=== PATIENT | female | born 2005 | race Caucasian/White ===

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

== ENCOUNTER 2024-01-23 15:16 | Outpatient (CLI) | payer OTHER ==
[2024-01-23 16:07] VITALS: BP 120/60; PULSE 83; RESP 16; TEMP 97.3
--- NOTE | 2024-01-24 18:29 | P.MSEPDOC ---
Presenting Problems - Arrival Data Date of Arrival on Unit: 01/23/24 Time of Arrival on Unit: 15:15 Mode of Transport: Ambulatory - Complaint OB-Reason for Admission/Chief Complaint: Pain Comment: generalized abdominal pain. diarrhea Medical History - Information : 1 Para: 0 Term: 0 : 0 Abortions: Spontaneous or Elective: 0 Number of Living Children: 1 - Gestational Age Gestational Age by BAL (wks/days): 21 Weeks and 3 Days Review of Systems - Review of Systems Constitutional: No problems Breast: No problems ENT: No problems Cardiovascular: No problems Respiratory: No problems Gastrointestinal: Diarrhea Genitourinary: No problems Musculoskeletal: No problems Neurological: No problems Skin: No problems Vital Signs - Temperature Temperature: 97.3 F Temperature Source: Temporal Artery Scan - Pulse Right Sitting Brachial Pulse Rate: 83 Pulse Assessment Method: Automatic Cuff - Respirations Respiratory Rate: 16 Oxygen Delivery Method: Room Air O2 Sat by Pulse Oximetry: 100 - Blood Pressure Right Arm Sitting Blood Pressure: 120/60 Blood Pressure Mean: 80 Blood Pressure Source: Automatic Cuff Physician Notification - Physician Notified Physician Notified Date: 01/23/24 Physician Notified Time: 15:40 Physician: Edyta Cherry Order Received: Yes - Notification Comment Comment: DC Maternal Triage Index - Maternal Triage Index Presenting for scheduled procedure w/no complaint: No - Stat/Priority 1 Stat Priority 1: No - Urgent/Priority 2 Urgent Priority 2: No - Prompt/Priority 3 Prompt Priority 3: No - Non-Urgent/Priority 4 Non-Urgent Priority 4: Yes Criteria Met for Priority 4: cramping, diarrhea, foul smellling urine Disposition - Disposition OB Disposition: Discharge to home Discharge Date: 01/23/24 Discharge Time: 15:53 I agree with the RN Medical Screening Exam: Yes Physician's MSE Comment: I have neither seen nor examined the patient Case reviewed; plan agreed upon as documented in EMR&OBIX.: Yes Diagnosis: RELATED CONDITIONS, UNSPECIFIED, SECOND TRIMESTER
== END 2024-01-23 15:53 | disposition home or self-care (01) ==
LOC: FBPOP 15:16
PROVIDERS: ATTEND Obstetrics & Gynecology
CPT/HCPCS: 99213

== ENCOUNTER 2024-03-24 18:59 | Outpatient (CLI) | payer OTHER ==
--- NOTE | 2024-03-24 20:23 | US ---
EXAMINATION TYPE: US OB limited DATE OF EXAM: 03/24/2024 COMPARISON: US 10/12/23 CLINICAL INDICATION: Female, 18 years old with history of LINDA; LINDA, patient states decreased mo vement TECHNIQUE:: Transabdominal (TA) FINDINGS: GESTATIONAL AGE / DATING No growth performed on today?s study per ordering physician SURVEY LINDA: 7.3 cm Normal Ultrasound evidence of premature rupture of membranes? No PRESENTATION: Vertex LIE: Longitudinal HEART RATE: 126 bpm RHYTHM: Normal IMPRESSION: LINDA: 7.3 cm Normal [facility] Sole Franco, , 03/24/2024 8:21 PM
[2024-03-24 20:57] VITALS: BP 122/59; PULSE 88; RESP 16; TEMP 97.3
--- NOTE | 2024-04-04 23:17 | P.MSEPDOC ---
Presenting Problems - Arrival Data Date of Arrival on Unit: 03/24/24 Time of Arrival on Unit: 18:59 Mode of Transport: Ambulatory - Complaint OB-Reason for Admission/Chief Complaint: Rule Out SROM, Decreased Movement Comment: Possible SROM at home 2 days ago, not leaking since Medical History - Information : 1 Para: 0 Term: 0 : 0 Abortions: Spontaneous or Elective: 0 Number of Living Children: 0 - Gestational Age Gestational Age by BAL (wks/days): 30 Weeks and 1 Days Review of Systems - Review of Systems Constitutional: No problems Breast: No problems ENT: No problems Cardiovascular: No problems Respiratory: No problems Gastrointestinal: No problems Genitourinary: No problems Musculoskeletal: No problems Neurological: No problems Skin: No problems Vital Signs - Temperature Temperature: 97.3 F Temperature Source: Temporal Artery Scan - Pulse Pulse Oximetery Pulse Rate: 88 Pulse Assessment Method: Pulse Oximetry - Respirations Respiratory Rate: 16 Oxygen Delivery Method: Room Air O2 Sat by Pulse Oximetry: 98 - Blood Pressure Right Arm Blood Pressure: 122/59 Blood Pressure Mean: 80 Blood Pressure Source: Automatic Cuff Medical Screen Scoring - Cervical Exam Membranes: Intact - Assessment - Baby A Baseline FHR: 135 Heart Rate - NICHD Category: Category I (Normal) NST: Reactive Physician Notification - Physician Notified Physician Notified Date: 03/24/24 Physician Notified Time: 19:45 Physician: Edyta Cherry - Notification Comment Comment: Dr. Cherry called, pt of hers 30 weeks 1 days presents with decreased FM for last fewdays and woke up drenched 2 days ago and is unsure if urine or amniotic fluid. Not leaking since. NST reacive and cat 1 tones, amnisure negative, vitals good, not cx. Order for LINDA, pt can be d/c home if LINDA normal. LINDA wnl, d/c home Maternal Triage Index - Maternal Triage Index Presenting for scheduled procedure w/no complaint: No - Stat/Priority 1 Stat Priority 1: No - Urgent/Priority 2 Urgent Priority 2: Yes Provider Notified: Edyta Cherry Provider Notified Time: 19:45 Criteria Met for Priority 2: PT c/o decreased movement over past few days and possible ROM at home 2 days ago Disposition - Disposition OB Disposition: Discharge to home Discharge Date: 03/24/24 Discharge Time: 20:37 I agree with the RN Medical Screening Exam: Yes Physician's MSE Comment: I have neither seen nor examined this patient Case reviewed; plan agreed upon as documented in EMR&OBIX.: Yes Diagnosis: OTHER SPECIFIED COMPLICATIONS OF LABOR AND DELIVERY
== END 2024-03-24 20:37 | disposition home or self-care (01) ==
LOC: FBPOP 18:59
PROVIDERS: ATTEND Obstetrics & Gynecology
DX: O75.89 Other specified complications of labor and delivery (principal); Z91.041 Radiographic dye allergy status
CPT/HCPCS: 59025; 76815; G0463; 99213

== ENCOUNTER 2024-05-13 12:56 | Outpatient (CLI) | payer OTHER ==
[2024-05-13 13:18] VITALS: BP 120/58; PULSE 110; RESP 14; TEMP 98.2
--- NOTE | 2024-06-06 23:52 | P.MSEPDOC ---
Presenting Problems - Arrival Data Date of Arrival on Unit: 05/13/24 Time of Arrival on Unit: 12:56 Mode of Transport: Ambulatory - Complaint OB-Reason for Admission/Chief Complaint: Possible Onset of Labor Medical History - Information : 1 Para: 0 Term: 0 : 0 Abortions: Spontaneous or Elective: 0 Number of Living Children: 0 - Gestational Age Gestational Age by BAL (wks/days): 37 Weeks and 2 Days - History Complications: Other Comment: Daily vaper Review of Systems - Review of Systems Constitutional: No problems Breast: No problems ENT: No problems Cardiovascular: No problems Respiratory: No problems Gastrointestinal: No problems Genitourinary: No problems Musculoskeletal: No problems Neurological: No problems Skin: No problems Vital Signs - Temperature Temperature: 98.2 F Temperature Source: Temporal Artery Scan - Pulse Right Pulse Oximetery Pulse Rate: 110 Pulse Assessment Method: Pulse Oximetry - Respirations Respiratory Rate: 14 Oxygen Delivery Method: Room Air O2 Sat by Pulse Oximetry: 98 - Blood Pressure Right Arm Sitting Blood Pressure: 120/58 Blood Pressure Mean: 78 Blood Pressure Source: Automatic Cuff Medical Screen Scoring - Cervical Exam Membranes: Intact - Uterine Contractions Intensity: Mild Resting: Soft to palpation - Assessment - Baby A Baseline FHR: 120 Heart Rate - NICHD Category: Category I (Normal) NST: Reactive Physician Notification - Physician Notified Physician Notified Date: 05/13/24 Physician Notified Time: 14:04 Physician: Edyta Cherry Order Received: Yes - Notification Comment Comment: Dr. Cherry returned phone call, notified of pts arrival to triage with c/o UC's q4min since this morning. RN reported on maternal and status. Orders for pt to D/C home. RN to discuss POC with pt. Maternal Triage Index - Maternal Triage Index Presenting for scheduled procedure w/no complaint: No - Stat/Priority 1 Stat Priority 1: No - Urgent/Priority 2 Urgent Priority 2: No - Prompt/Priority 3 Prompt Priority 3: No - Non-Urgent/Priority 4 Non-Urgent Priority 4: Yes Criteria Met for Priority 4: Pt is a with BAL 06/01/24 here at 37.2 weeks of gestation with c/o UC's q4min apart since this morning. Pt denies other symptoms, and complications with the . Disposition - Disposition OB Disposition: Discharge to home Discharge Date: 05/13/24 Discharge Time: 14:24 I agree with the RN Medical Screening Exam: Yes Physician's MSE Comment: I have neither seen nor examined the patient. Case reviewed; plan agreed upon as documented in EMR&OBIX.: Yes Diagnosis: RELATED CONDITIONS, UNSPECIFIED, THIRD TRIMESTER
== END 2024-05-13 14:24 | disposition home or self-care (01) ==
LOC: FBPOP 12:56
PROVIDERS: ATTEND Obstetrics & Gynecology
DX: O26.93 Pregnancy related conditions, unspecified, third trimester (principal); Z3A.37 37 weeks gestation of pregnancy; Z91.041 Radiographic dye allergy status
CPT/HCPCS: 59025; G0463; 99213

== ENCOUNTER 2024-05-24 04:23 | Outpatient (CLI) | payer OTHER ==
[2024-05-24 06:12] VITALS: BP 122/58; PULSE 101; RESP 16; TEMP 97.4
== END 2024-05-24 05:52 ==
LOC: FBPOP 04:23
PROVIDERS: ATTEND Obstetrics & Gynecology
DX: Z53.9 Procedure and treatment not carried out, unspecified reason (principal)
CPT/HCPCS: 59025; G0463; 99213

== ENCOUNTER 2024-05-28 05:41 | Inpatient (IN) | payer OTHER ==
[2024-05-28] MEDS ORDERED: miSOPROStoL 200 MCG TAB RECTAL PRN (05:58)
[2024-05-28] MEDS ORDERED: CARBOPROST TROMETHAMINE 250 MCG/ML 1 ML AMP IM PRN (05:58)
[2024-05-28] MEDS ORDERED: TRANEXAMIC 1,000 MG/100ML-NACL 1,000 MG in EMPTY BAG 1 BAG IV PRN (05:58)
[2024-05-28] MEDS ORDERED: TERBUTALINE 1 MG/ML VIAL SQ PRN (05:58)
[2024-05-28] MEDS ORDERED: miSOPROStoL 200 MCG TAB PO PRN (05:58)
[2024-05-28] MEDS ORDERED: METHYLERGONOVINE 0.2 MG/ML 1 ML AMP IM PRN (05:58)
[2024-05-28] MEDS ORDERED: OXYTOCIN 10 UNIT/ML 1 ML VIAL IM PRN (05:58)
[2024-05-28] MEDS: LACTATED RINGERS 1,000 ML IV SCH (06:18)
[2024-05-28] MEDS: OXYTOCIN 30 UNITS/500 ML NS 30 UNIT in SALINE 1 500ML.BAG IV SCH (06:23)
[2024-05-28 07:00] LABS: Basophils % (A) 0 %; Eosinophils # (A) 0.4 k/uL (0-0.7); Eosinophils % (A) 4 %; HCT 34.8 % (34.0-46.0); HGB 11.5 gm/dL (11.4-16.0); Hypochromasia Slight; Lymphocytes # (A) 1.9 k/uL (1.0-4.8); Lymphocytes % (A) 18 %; MCH 26.9 pg (25.0-35.0); MCHC 33.1 g/dL (31.0-37.0); MCV 81.4 fL (80.0-100.0); Mean Platelet Volume 9.9; Monocytes # (A) 0.5 k/uL (0-1.0); Monocytes % (A) 5 %; Neutrophils # (A) 7.7 k/uL (1.3-7.7); Neutrophils % (A) 72 %; Platelet Count 227 k/uL (150-450); RBC 4.27 m/uL (3.80-5.40); RDW 14.2 % (11.5-15.5); WBC 10.7 k/uL (4.0-11.0)
[2024-05-28] MEDS: NALBUPHINE 10 MG/ML (10 ML MDV) IV PRN (09:58)
[2024-05-28] MEDS ORDERED: ROPIVACAINE 5 MG/ML 30 ML VIAL ONE (13:25)
[2024-05-28] MEDS ORDERED: SODIUM CHLORIDE 0.9% 250 ML BAG ONE (13:25)
[2024-05-28] MEDS ORDERED: fentaNYL (PF) 50 MCG/ML 5 ML AMP ONE (13:25)
--- NOTE | 2024-05-28 18:05 | P.HPOB ---
History of Present Illness H&P Date: 05/28/24 Chief Complaint: induction of labor Ms. Cardoso is a 18 year old at 39 weeks and 3 days gestation with EDC of 06/01/24 based on LMP consistent with 9 week US who presents for elective induction of labor. has been complicated by a maternal history of bipolar disorder for which she takes Lexapro and Abilify. There is also a history of maternal mild intermittent asthma. Finally, the patient is Rh negative and did receive rhogam at 28 weeks. The fetus is estimated in the 48%ile based on a 32 week growth US. work-up: blood type AB negative, antibody screen negative, rubella immune, VDRL non-reactive, HBsAg negative, HIV negative, HCV Ab non-reactive, gonorrhea negative, chlamydia negative, 1 hour GTT wnl, GBS negative. Past Medical History Past Medical History: Asthma Additional Past Medical History / Comment(s): hernia on "top of stomach" History of Any Multi-Drug Resistant Organisms: None Reported Past Surgical History: No Surgical Hx Reported Additional Past Surgical History / Comment(s): wisdom teeth Past Anesthesia/Blood Transfusion Reactions: No Reported Reaction Past Psychological History: ADD/ADHD, Anxiety, Bipolar, Depression Additional Psychological History / Comment(s): mood disorder Smoking Status: Vaper Past Alcohol Use History: None Reported Past Drug Use History: Marijuana Additional Drug Use History / Comment(s): pt hasn't used since she found out she was - Past Family History Father Family Medical History: Diabetes Mellitus Mother Family Medical History: Diabetes Mellitus Medications and Allergies Home Medications Medication Instructions Recorded Confirmed Type Omeprazole Magnesium [PriLOSEC OTC] 20 mg PO DAILY 05/24/24 05/28/24 History ARIPiprazole [Abilify] 10 mg PO DAILY 05/28/24 05/28/24 History Allergies Allergy/AdvReac Type Severity Reaction Status Date / Time Iodinated Contrast Media AdvReac Anaphylaxis Verified 05/28/24 05:56 Exam Vital Signs Temp Pulse Resp BP Pulse Ox 05/28/24 06:06 20 05/28/24 05:59 96.2 F L 73 18 130/59 98 Intake and Output 05/28/24 05/28/24 05/28/24 06:59 14:59 22:59 Other: # Voids 2 Weight 73.482 kg Focused physical exam is performed. This is a healthy-appearing in no apparent distress. Breathing is non-labored. Abdomen is gravid and non-tender. Cervical exam is 2.5/60/-2. AROM is undertaken revealing clear amniotic fluid. Extremities non-tender and non-edematous. heart tones are Category I and tocometer is graphing contractions every 2-4 minutes. Results Result Diagrams: 05/28/24 06:20 Assessment and Plan Assessment: 18 year old at 39 weeks and 3 days presenting for elective induction of labor Plan: Admit, clear liquid diet, pitocin per protocol, epidural prn.
[2024-05-28] MEDS: LIDOCAINE 0.5% (PF) 5 MG/ML (50 ML SDV) SQ PRN (19:50)
[2024-05-28] MEDS ORDERED: HYDROCORTISONE 2.5% RECTAL CREAM 30 GM TUBE RECTAL PRN (20:05)
[2024-05-28] MEDS ORDERED: ZOLPIDEM 5 MG TAB PO PRN (20:05)
[2024-05-28] MEDS ORDERED: LANOLIN CREAM 1 GM TUBE TOPICAL PRN (20:05)
[2024-05-28] MEDS ORDERED: BENZOCAINE/MENTHOL SPRAY 1 GM/SPRAY AEROSOL TOPICAL PRN (20:05)
[2024-05-28] MEDS ORDERED: diphenhydrAMINE 50 MG/ML 1 ML VIAL IVP PRN ×2 (20:05)
[2024-05-28] MEDS ORDERED: diphenhydrAMINE 25 MG CAP PO PRN (20:05)
--- NOTE | 2024-05-28 20:05 | P.PROBDLV ---
Vaginal Delivery Note - . Vaginal Delivery Note: DATE OF SERVICE: 05/28/2024 PROCEDURE: Normal Vaginal Delivery ATTENDING: Dr. Edyta Cherry MD ESTIMATED BLOOD LOSS: 200 mL FINDINGS: VFI, Apgars 9/9. Weight 6 pounds and 6 ounces (2895 grams) PROCEDURE: Ms. Cardoso is a 18 year old at 39 weeks and 3 days gestation presenting to labor and delivery for elective induction of labor. The has been complicated by maternal bipolar disorder, maternal asthma, and rh negative status. For further details, please review the admitting H&P. Pitocin was titrated per protocol. AROM was undertaken at 722 revealing clear amniotic fluid. The patient was completely dilated. She pushed effectively for appro ximately 20-30 minutes with Category II heart tones. A viable female was delivered at 1943. The was placed on the maternal abdomen and bulb suctioned. The was noted to be spontaneously crying. Cord was clamped and cut after a 60-second delay. The infant was handed off to the pediatric team. Placenta was delivered whole with gentle cord traction at 1945. Oxytocin was started to facilitate uterine tone. Uterine fundus was found to be firm and below the umbilicus upon fundal massage. Thorough examination of the cervix, vagina, periurethral area, and perineum revealed a deep left periurethral laceration. This area was infiltrated with lidocaine and repaired with 2-0 Vicryl in a running fashion. The patient is stable and allowed to begin the bonding process.
[2024-05-28] MEDS: diphenhydrAMINE 50 MG CAP PO PRN (23:55)
[2024-05-29] MEDS: IBUPROFEN 800 MG TAB PO SCH (02:11)
[2024-05-29 02:44] LABS: Basophils % (A) 0 %; Eosinophils # (A) 0.1 k/uL (0-0.7); Eosinophils % (A) 1 %; HCT 29.7 % (34.0-46.0); Hypochromasia Slight; Lymphocytes # (A) 1.3 k/uL (1.0-4.8); Lymphocytes % (A) 12 %; MCH 27.4 pg (25.0-35.0); MCHC 33.5 g/dL (31.0-37.0); MCV 81.7 fL (80.0-100.0); Mean Platelet Volume 10.5; Monocytes # (A) 0.5 k/uL (0-1.0); Monocytes % (A) 5 %; Neutrophils # (A) 8.8 k/uL (1.3-7.7); Neutrophils % (A) 81 %; Platelet Count 177 k/uL (150-450); RBC 3.63 m/uL (3.80-5.40); RDW 14.2 % (11.5-15.5); WBC 10.9 k/uL (4.0-11.0)
--- NOTE | 2024-05-29 07:11 | P.DS ---
Providers Date of admission: 05/28/24 05:41 Expected date of discharge: 05/29/24 Attending physician: Edyta Cherry MD Primary care physician: Stated None Hospital Course: Ms. Cardoso is a 18 year old now PPD#1 s/p . The patient is doing well this morning and had no acute events overnight. She has no complaints this morning. She reports minimal lochia, passing flatus, voiding without difficulty, ambulating, and eating/drinking without nausea or vomiting. doing well at bedside. She denies chest pain, shortness of breathing, fevers, or chills overnight. She denies pain or swelling in the legs. restrictions are reviewed with the patient including pelvic rest for 6 weeks. The patient is encouraged to call the office if she experiences any heavy bleeding, foul- smelling discharge, breast complaints, or any if she has any other concerns. She will follow up in the office with in 6 weeks for exam. All questions are answered. Patient Condition at Discharge: Good Plan - Discharge Summary New Discharge Prescriptions: New Albuterol Inhaler [Ventolin Hfa Inhaler] 1 puff INHALATION QID #8 gm No Action Omeprazole Magnesium [PriLOSEC OTC] 20 mg PO DAILY ARIPiprazole [Abilify] 10 mg PO DAILY Discharge Medication List Omeprazole Magnesium [PriLOSEC OTC] 20 mg PO DAILY 05/24/24 [History] ARIPiprazole [Abilify] 10 mg PO DAILY 05/28/24 [History] Albuterol Inhaler [Ventolin Hfa Inhaler] 1 puff INHALATION QID #8 gm 05/29/24 [Rx] Follow up Appointment(s)/Referral(s): Edyta Cherry MD [STAFF PHYSICIAN] - 07/07/24 3:30 pm Activity/Diet/Wound Care/Special Instructions: Instructions 1. Do not begin any exercise program for 3 weeks. 2. Do not resume sexual relations for 6 weeks or longer if uncomfortable. 3. You may take tub baths or showers at any time. 4. You may use tampons if desired after 6 weeks. 5. Keep any areas repaired with stitches clean and dry. 6. If you are not nursing, wear a good fitting, supportive bra during the day and limit fluid intake for at least 1 week to prevent breast engorgement. 7. Call the office, , within the next week to make appointment for your 6 week checkup if it has not already been made. 8. Report any of the following occurrences to the doctor promptly: a. Heavy, excessive bleeding b. Chills, fever c. Burning or frequency of urination d. Pain or redness and breasts if nursing e. Increasing pain or swelling of vulva (stitches). In addition to the above instructions, the following additional should be followed: 1. No heavy lifting or straining (exercising) until after 6 week checkup. 2. Keep abdominal incision clean and dry: You may wear a dressing if more comfortable. 3. Make office appointment for 2 weeks after delivery date. Discharge Disposition: HOME SELF-CARE
[2024-05-29] MEDS: ACETAMINOPHEN TAB 500 MG TAB PO SCH (08:25)
[2024-05-29] MEDS: SENNOSIDES-DOCUSATE SODIUM 1 EACH TAB PO SCH (08:26)
[2024-05-29] MEDS: SIMETHICONE 80 MG CHEWABLE PO PRN (10:27)
[2024-05-29] MEDS: Rhogam IMMUNE GLOBULIN 1,500 UNIT/1 ML IM ONE (14:36)
[2024-05-29 21:21] VITALS: BP 118/66; PULSE 78; RESP 15; TEMP 97.8
== END 2024-05-29 20:50 | disposition home or self-care (01) | DRG 560 ==
LOC: 4FBP 05:41
PROVIDERS: ADMIT Obstetrics & Gynecology; ATTEND Obstetrics & Gynecology
PROC: 10E0XZZ Delivery of Products of Conception, External Approach (ICD-10-PCS; principal; 2024-05-28)
PROC: 3E033VJ Introduction of Other Hormone into Peripheral Vein, Percutaneous Approach (ICD-10-PCS; principal; 2024-05-28)
PROC: 0UQMXZZ Repair Vulva, External Approach (ICD-10-PCS; principal; 2024-05-28)
PROC: 10907ZC Drainage of Amniotic Fluid, Therapeutic from Products of Conception, Via Natural or Artificial Opening (ICD-10-PCS; principal; 2024-05-28)
PROC: 3E0234Z Introduction of Serum, Toxoid and Vaccine into Muscle, Percutaneous Approach (ICD-10-PCS; 2024-05-29)
DX: O26.893 Other specified pregnancy related conditions, third trimester (principal); O99.344 Other mental disorders complicating childbirth; Z37.0 Single live birth; F31.9 Bipolar disorder, unspecified; J45.20 Mild intermittent asthma, uncomplicated; Z79.899 Other long term (current) drug therapy; F41.9 Anxiety disorder, unspecified; F90.9 Attention-deficit hyperactivity disorder, unspecified type; O71.82 Other specified trauma to perineum and vulva; O99.52 Diseases of the respiratory system complicating childbirth; Z67.31 Type AB blood, Rh negative; O99.334 Smoking (tobacco) complicating childbirth; F17.290 Nicotine dependence, other tobacco product, uncomplicated; Z3A.39 39 weeks gestation of pregnancy
CPT/HCPCS: 85025; 85461; 86850; 86900; 86901

== ENCOUNTER 2024-06-22 19:33 | Emergency (ER) | payer OTHER ==
--- NOTE | 2024-06-22 19:55 | ED ---
Abdominal Pain HPI - General Chief Complaint: Abdominal Pain Stated Complaint: 3 wks pp-abd pain, Chest Pain Time Seen by Provider: 06/22/24 19:53 Source: patient, RN notes reviewed Mode of arrival: ambulatory Limitations: no limitations - History of Present Illness Initial Comments: 18-year-old female 3 weeks presenting for epigastric pain since this morning. States she woke up in the middle of the night last night with a sharp pain in the epigastric region radiating to the back and into the chest. Pain is worse with laying flat and improved with leaning forward. Also endorses repeated vomiting today. Denies fever, cough, urinary symptoms. She has never had this pain before. She underwent vaginal delivery 3 weeks ago, reports no complications in the . States she has a history of a hiatal hernia otherwise no medical conditions. - Related Data Home Medications Medication Instructions Recorded Confirmed Omeprazole Magnesium [PriLOSEC OTC] 20 mg PO DAILY 05/24/24 05/28/24 ARIPiprazole [Abilify] 10 mg PO DAILY 05/28/24 05/28/24 Previous Rx's Medication Instructions Recorded Albuterol Inhaler [Ventolin Hfa 1 puff INHALATION QID #8 gm 05/29/24 Inhaler] Ketorolac [Toradol] 10 mg PO Q8HR #15 tab 06/22/24 Ondansetron Odt [Zofran Odt] 4 mg PO Q8HR PRN #10 tab 06/22/24 Allergies Allergy/AdvReac Type Severity Reaction Status Date / Time Iodinated Contrast Media AdvReac Anaphylaxis Verified 05/28/24 05:56 Review of Systems ROS Statement: Those systems with pertinent positive or pertinent negative responses have been documented in the HPI. ROS Other: All systems not noted in ROS Statement are negative. Past Medical History Past Medical History: Asthma Additional Past Medical History / Comment(s): hernia on "top of stomach" History of Any Multi-Drug Resistant Organisms: None Reported Past Surgical History: No Surgical Hx Reported Additional Past Surgical History / Comment(s): wisdom teeth Past Anesthesia/Blood Transfusion Reactions: No Reported Reaction Past Psychological History: ADD/ADHD, Anxiety, Bipolar, Depression Smoking Status: Vaper Past Alcohol Use History: None Reported Past Drug Use History: Marijuana - Past Family History Father Family Medical History: Diabetes Mellitus Mother Family Medical History: Diabetes Mellitus General Exam Limitations: no limitations General appearance: alert, other (Appears uncomfortable on physical examination, she is leaning forward clutching abdomen) Head exam: Present: atraumatic, normocephalic, normal inspection Eye exam: Present: normal appearance, PERRL, EOMI. Absent: scleral icterus, conjunctival injection, periorbital swelling Respiratory exam: Present: normal lung sounds bilaterally. Absent: respiratory distress, wheezes, rales, rhonchi, stridor Cardiovascular Exam: Present: regular rate, normal rhythm, normal heart sounds. Absent: systolic murmur, diastolic murmur, rubs, gallop, clicks GI/Abdominal exam: Present: soft, tenderness (Epigastric tenderness to palpation predominantly right upper quadrant), normal bowel sounds. Absent: distended, guarding, rebound, rigid Neurological exam: Present: alert, oriented X3 Psychiatric exam: Present: normal affect, normal mood Skin exam: Present: warm, dry, intact, normal color. Absent: rash Course Vital Signs 06/22/24 06/22/24 06/22/24 19:34 21:00 21:50 Temperature 98.0 F Pulse Rate 75 55 L 59 L Respiratory 17 18 18 Rate Blood Pressure 121/77 121/86 O2 Sat by Pulse 100 100 100 Oximetry Medical Decision Making - Medical Decision Making Was pt. sent in by a medical professional or institution ([facility]ridge, [employer], urgent care, hospital, or long-term...) When possible be specific @ -No Did you speak to anyone other than the patient for history (EMS, parent, family, police, friend...)? What history was obtained from this source @ -No Did you review nursing and triage notes (agree or disagree)? Why? @ -I reviewed and agree with nursing and triage notes Were old charts reviewed (outside hosp., previous admission, EMS record, old EKG, old radiological studies, urgent care reports/EKG's, long-term records)? Report findings @ -No old charts were reviewed Differential Diagnosis (chest pain, altered mental status, abdominal pain women, abdominal pain men, vaginal bleeding, weakness, fever, dyspnea, syncope, headache, dizziness, GI bleed, back pain, seizure, CVA, palpatations, mental health, musculoskeletal)? @ -Differential Abdominal Pain Women: Appendicitis, hellp syndrome, cardiomyopathy, cholecystitis, diverticulosis, ischemic bowel, pancreatitis, hepatitis, UTI, gastroenteritis, AAA, incarcerated hernia, bowel obstruction, constipation, inflammatory bowel, hepatitis, peptic ulcer disease, splenic infarction, perforated viscus, v ulvitis, ovarian torsion, PID, kidney stone, placenta abruption, this is not meant to be an all-inclusive list EKG interpreted by me (3pts min.). @ -As above X-rays interpreted by me (1pt min.). @ -Chest x-ray reveals no acute process CT interpreted by me (1pt min.). @ -None done U/S interpreted by me (1pt. min.). @ -Ultrasound gallbladder reveals cholelithiasis with no acute process What testing was considered but not performed or refused? (CT, X-rays, U/S, labs)? Why? @ -None What meds were considered but not given or refused? Why? @ -None Did you discuss the management of the patient with other professionals (professionals i.e. , PA, MOTOR REBUILDER, lab, RT, psych nurse, social economist, educational psychology teacher, te acher, disbursing officer, oil field caser)? Give summary @ -No Was smoking cessation discussed for >3mins.? @ -No Was critical care preformed (if so, how long)? @ -No Were there social determinants of health that impacted care today? How? (Homelessness, low income, unemployed, alcoholism, drug addiction, transportation, low edu. Level, literacy, decrease access to med. care, [facility], rehab)? @ -No Was there de-escalation of care discussed even if they declined (Discuss DNR or withdrawal of care, Hospice)? DNR status @ -No What co-morbidities impacted this encounter? (DM, HTN, Smoking, COPD, CAD, Cancer, CVA, ARF, Chemo, Hep., AIDS, mental health diagnosis, sleep apnea, morbid obesity)? @ -None Was patient admitted / discharged? Hospital course, mention meds given and route, prescriptions, significant lab abnormalities, going to OR and other pertinent info. @ -Discharge. 18-year-old female 3 weeks presenting for epigastric pain x 1 day with vomiting. Patient is afebrile, nontachycardic. There is epigastric tenderness predominantly right-sided on physical examination. Patient is provided with IV fluid bolus, Toradol, and Zofran. Lab work largely unremarkable. White blood cell count stable at 9.1. Lactic acid, lipase, and troponin within normal limits. Urinalysis reveals contaminated sample not overly indicative of urinary tract infection. EKG reveals normal sinus rhythm with no ST changes. Chest x-ray reveals no acute process. Ultrasound gallbladder reveals cholelithiasis with no acute process. Discussed results with patient. Upon reevaluation, patient reports improvement of symptoms but is requesting an additional dose of pain medication. Appropriate return precautions and follow-up care discussed with patient. Case was discussed with my ED attending Dr. Dahl. Undiagnosed new problem with uncertain prognosis? @ -No Drug Therapy requiring intensive monitoring for toxicity (Heparin, Nitro, Insulin, Cardizem)? @ -No Were any procedures done? @ -No Diagnosis/symptom? @ -Biliary colic Acute, or Chronic, or Acute on Chronic? @ -Acute Uncomplicated (without systemic symptoms) or Complicated (systemic symptoms)? @ -Uncomplicated Side effects of treatment? @ -No Exacerbation, Progression, or Severe Exacerbation? @ -No Poses a threat to life or bodily function? How? (Chest pain, USA, [place], pneumonia, PE, COPD, DKA, ARF, appy, cholecystitis, CVA, Diverticulitis, Homicidal, Suicidal, threat to staff... and all critical care pts) @ -Not at this time - Lab Data Result diagrams: 06/22/24 20:17 06/22/24 20:17 Lab Results 06/22/24 06/22/24 06/22/24 Range/Units 20:17 20:17 20:17 WBC 9.1 (4.0-11.0) k/uL RBC 5.29 (3.80-5.40) m/uL Hgb 13.5 D (11.4-16.0) gm/dL Hct 43.2 (34.0-46.0) % MCV 81.5 (80.0-100.0) fL MCH 25.6 (25.0-35.0) pg MCHC 31.3 (31.0-37.0) g/dL RDW 14.0 (11.5-15.5) % Plt Count 333 (150-450) k/uL MPV 8.8 Neutrophils % 75 % Lymphocytes % 14 % Monocytes % 2 % Eosinophils % 6 % Basophils % 0 % Neutrophils # 6.9 (1.3-7.7) k/uL Lymphocytes # 1.3 (1.0-4.8) k/uL Monocytes # 0.2 (0-1.0) k/uL Eosinophils # 0.6 (0-0.7) k/uL Basophils # 0.0 (0-0.2) k/uL Sodium 138 (137-145) mmol/L Potassium 3.8 (3.5-5.1) mmol/L Chloride 104 (98-107) mmol/L Carbon Dioxide 22 (22-30) mmol/L Anion Gap 12 mmol/L BUN 11 (7-17) mg/dL Creatinine 1.00 (0.52-1.04) mg/dL Est GFR (CKD-EPI)AfAm >90 (>60 ml/min/1.73 sqM) Est GFR (CKD-EPI)NonAf 82 (>60 ml/min/1.73 sqM) Glucose 113 H (74-99) mg/dL Plasma Lactic Acid Reyes 1.2 (0.7-2.0) mmol/L Calcium 9.9 (8.4-10.2) mg/dL Total Bilirubin 0.6 (0.2-1.3) mg/dL AST 24 (14-36) U/L ALT 18 (4-34) U/L Alkaline Phosphatase 111 (38-126) U/L Troponin I (0.000-0.034) ng/mL Total Protein 7.7 (6.3-8.2) g/dL Albumin 4.4 (3.5-5.0) g/dL Lipase 84 (23-300) U/L Urine Color Urine Appearance (Clear) Urine pH (5.0-8.0) Ur Specific [place] (1.001-1.035) Urine Protein (Negative) Urine Glucose (UA) (Negative) Urine Ketones (Negative) Urine Blood (Negative) Urine Nitrite (Negative) Urine Bilirubin (Negative) Urine Urobilinogen (<2.0) mg/dL Ur Leukocyte Esterase (Negative) Urine RBC (0-5) /hpf Urine WBC (0-5) /hpf Ur Squamous Epith Cells (0-4) /hpf Urine Bacteria (None) /hpf Urine Mucus (None) /hpf 03/16/25 03/16/25 Range/Units 20:17 20:31 WBC (4.0-11.0) k/uL RBC (3.80-5.40) m/uL Hgb (11.4-16.0) gm/dL Hct (34.0-46.0) % MCV (80.0-100.0) fL MCH (25.0-35.0) pg MCHC (31.0-37.0) g/dL RDW (11.5-15.5) % Plt Count (150-450) k/uL MPV Neutrophils % % Lymphocytes % % Monocytes % % Eosinophils % % Basophils % % Neutrophils # (1.3-7.7) k/uL Lymphocytes # (1.0-4.8) k/uL Monocytes # (0-1.0) k/uL Eosinophils # (0-0.7) k/uL Basophils # (0-0.2) k/uL Sodium (137-145) mmol/L Potassium (3.5-5.1) mmol/L Chloride (98-107) mmol/L Carbon Dioxide (22-30) mmol/L Anion Gap mmol/L BUN (7-17) mg/dL Creatinine (0.52-1.04) mg/dL Est GFR (CKD-EPI)AfAm (>60 ml/min/1.73 sqM) Est GFR (CKD-EPI)NonAf (>60 ml/min/1.73 sqM) Glucose (74-99) mg/dL Plasma Lactic Acid Reyes (0.7-2.0) mmol/L Calcium (8.4-10.2) mg/dL Total Bilirubin (0.2-1.3) mg/dL AST (14-36) U/L ALT (4-34) U/L Alkaline Phosphatase (38-126) U/L Troponin I <0.012 (0.000-0.034) ng/mL Total Protein (6.3-8.2) g/dL Albumin (3.5-5.0) g/dL Lipase (23-300) U/L Urine Color Light Yellow Urine Appearance Cloudy H (Clear) Urine pH 6.5 (5.0-8.0) Ur Specific [place] 1.020 (1.001-1.035) Urine Protein Negative (Negative) Urine Glucose (UA) Negative (Negative) Urine Ketones Negative (Negative) Urine Blood Moderate H (Negative) Urine Nitrite Negative (Negative) Urine Bilirubin Negative (Negative) Urine Urobilinogen <2.0 (<2.0) mg/dL Ur Leukocyte Esterase Large H (Negative) Urine RBC 11 H (0-5) /hpf Urine WBC 30 H (0-5) /hpf Ur Squamous Epith Cells 8 H (0-4) /hpf Urine Bacteria Rare H (None) /hpf Urine Mucus Rare H (None) /hpf - EKG Data -: EKG Interpreted by Me EKG Comments: EKG reveals normal sinus rhythm with no acute ST changes. Ventricular rate 62 bpm, parable 108, QRS duration 86, QT/QTc 394/399 Disposition Clinical Impression: Biliary colic Disposition: HOME SELF-CARE Condition: Stable Instructions (If sedation given, give patient instructions): Biliary Colic (ED) Additional Instructions: Take Zofran as needed for nausea and Toradol as needed for pain. Follow-up with surgeon as discussed. Please return to the Emergency Department if symptoms worsen or any other concerns. Prescriptions: Ketorolac [Toradol] 10 mg PO Q8HR #15 tab Ondansetron Odt [Zofran Odt] 4 mg PO Q8HR PRN #10 tab PRN Reason: Nausea Is patient prescribed a controlled substance at d/c from ED?: No Referrals: Kofi Colvin MD [Primary Care Provider] - 1-2 days Carlos Lomax MD [STAFF PHYSICIAN] - 1-2 days Time of Disposition: 22:30
[2024-06-22] MEDS: KETOROLAC 15 MG/ML 1 ML VIAL IVP STA ×2 (20:09→22:37)
[2024-06-22] MEDS: ONDANSETRON 4 MG/2 ML VIAL IVP STA (20:09)
[2024-06-22] MEDS: SODIUM CHLORIDE 0.9% 1,000 ML IV STA ×2 (20:10→22:29)
[2024-06-22 20:28] LABS: Basophils % (A) 0 %; Eosinophils # (A) 0.6 k/uL (0-0.7); Eosinophils % (A) 6 %; HCT 43.2 % (34.0-46.0); Lymphocytes # (A) 1.3 k/uL (1.0-4.8); Lymphocytes % (A) 14 %; MCH 25.6 pg (25.0-35.0); MCHC 31.3 g/dL (31.0-37.0); MCV 81.5 fL (80.0-100.0); Mean Platelet Volume 8.8; Monocytes # (A) 0.2 k/uL (0-1.0); Monocytes % (A) 2 %; Neutrophils # (A) 6.9 k/uL (1.3-7.7); Neutrophils % (A) 75 %; Platelet Count 333 k/uL (150-450); RBC 5.29 m/uL (3.80-5.40); WBC 9.1 k/uL (4.0-11.0)
[2024-06-22 20:38] LABS: HGB 13.5 gm/dL (11.4-16.0)
--- NOTE | 2024-06-22 20:43 | XR ---
EXAMINATION TYPE: XR chest 2V DATE OF EXAM: 06/22/2024 8:39 PM COMPARISON: None CLINICAL INDICATION: Female, 18 years old with history of chest pain post ; [facility] TECHNIQUE: XR chest 2V Frontal and lateral views of the chest. FINDINGS: Lungs/Pleura: There is no evidence of pleural effusion, focal consolidation, or pneumothorax. Pulmonary vascularity: Unremarkable. Heart/mediastinum: Cardiomediastinal silhouette is unremarkable. Musculoskeletal: No acute osseous pathology. IMPRESSION: No acute cardiopulmonary disease/process. [facility], , 06/22/2024 8:40 PM
[2024-06-22 20:50] LABS: Appearance,Urine Cloudy (Clear); Bacteria,Urine Rare /hpf; Bilirubin,Urine Negative (Negative); Blood,Urine Moderate (Negative); Color,Urine Light Yellow; Glucose,Urine (UA) Negative (Negative); Ketones,Urine Negative (Negative); Leukocyte Esterase,Urine Large (Negative); Mucus,Urine Rare /hpf; Nitrite,Urine Negative (Negative); PH, Urine 6.5 (5.0-8.0); Protein,Urine Negative (Negative); RBC,Urine 11 /hpf (0-5); Squamous Epithelial Cell,Urine 8 /hpf (0-4); Urobilinogen,Urine <2.0 mg/dL (<2.0); WBC,Urine 30 /hpf (0-5)
[2024-06-22 20:51] LABS: ALT 18 U/L (4-34); AST 24 U/L (14-36); African American GFR (CKD) >90 (>60 ml/min/1.73 sqM); Albumin 4.4 g/dL (3.5-5.0); Alkaline Phosphatase 111 U/L (38-126); Anion Gap 12 mmol/L; Blood Urea Nitrogen 11 mg/dL (7-17); Calcium 9.9 mg/dL (8.4-10.2); Carbon Dioxide 22 mmol/L (22-30); Chloride 104 mmol/L (98-107); Glucose 113 mg/dL (74-99); Lipase 84 U/L (23-300); Non-African American GFR(CKD) 82 (>60 ml/min/1.73 sqM); Potassium 3.8 mmol/L (3.5-5.1); Sodium 138 mmol/L (137-145); Total Bilirubin 0.6 mg/dL (0.2-1.3); Total Protein 7.7 g/dL (6.3-8.2)
[2024-06-22 21:03] VITALS: RESP 18
[2024-06-22] MEDS: diphenhydrAMINE 50 MG/ML 1 ML VIAL IVP STA (21:32)
[2024-06-22] MEDS: FAMOTIDINE 20 MG/2 ML VIAL IV STA (21:33)
[2024-06-22] MEDS: methylPREDNISolone SOD SUCCI 125 MG/2 ML VIAL IV STA (21:33)
--- NOTE | 2024-06-22 22:01 | US ---
EXAMINATION TYPE: US gallbladder DATE OF EXAM: 06/22/2024 COMPARISON: None CLINICAL INDICATION: Female, 18 years old with history of RUQ abd pain; Recent . TECHNIQUE: Grayscale and color Doppler imaging of the right upper quadrant was performed. FINDINGS: EXAM MEASUREMENTS: Liver Length: 15.4 cm Gallbladder Wall: 0.2 cm CBD: 0.4 cm Right Kidney: 8.3 x 4.4 x 3.6 cm Pancreas: Head obscured by overlying bowel gas Liver: wnl Gallbladder: Enlarged in size= 10.8 cm. Mobile echogenic foci. Evidence for sonographic Jeffries's sign: neg CBD: wnl Right Kidney: No hydronephrosis or masses seen IMPRESSION: 1. No evidence for acute process. 2. Cholelithiasis. [facility], , 06/22/2024 9:59 PM
[2024-06-22] MEDS: METOCLOPRAMIDE 5 MG/ML 2 ML VIAL IVP STA (22:33)
[2024-06-22 22:47] VITALS: BP 136/74; PULSE 80; TEMP 98.1
== END 2024-06-22 22:47 | disposition home or self-care (01) ==
LOC: EC 19:33
DX: O99.63 Diseases of the digestive system complicating the puerperium (principal); K80.50 Calculus of bile duct without cholangitis or cholecystitis without obstruction; F17.290 Nicotine dependence, other tobacco product, uncomplicated; Z91.041 Radiographic dye allergy status
CPT/HCPCS: 36415; 93005; 80053; 83605; 83690; 84484; 85025; 81001; 71046; 76705; 99285; 96374; 96375; 96376; 96361; J2765; J2405; J1885

== ENCOUNTER 2024-06-24 01:22 | Inpatient (IN) | payer OTHER ==
--- NOTE | 2024-06-24 02:05 | ED ---
General Adult HPI - General Chief complaint: Abdominal Pain Stated complaint: Abd pain Time Seen by Provider: 06/24/24 01:41 Source: patient Mode of arrival: wheelchair Limitations: no limitations - History of Present Illness Initial comments: Patient is a 18-year-old female 3 weeks presenting for right upper quadrant pain. States she was here yesterday for similar. Was told that she had gallstones and discharged home. Patient states that state pain started again yesterday evening after eating corn beef and cabbage. It is sharp in natu re and wraps around to the right side of her back. Took Toradol at home without improvement of her pain. Endorses nausea, no emesis. Denies melena, hematochezia, diarrhea or constipation. Denies any increased vaginal bleeding or vaginal discharge. Denies fevers or chills. No prior abdominal surgeries. Denies chest pain and states that she has pain with deep breathing which makes it feel like she shortness of breath. Denies dysuria or hematuria. - Related Data Home Medications Medication Instructions Recorded Confirmed Albuterol Inhaler [Ventolin Hfa 1 puff INHALATION RT-QID PRN 06/24/24 06/24/24 Inhaler] diphenhydrAMINE HCL [Benadryl] 25 mg PO BID PRN 06/24/24 06/24/24 Previous Rx's Medication Instructions Recorded Ketorolac [Toradol] 10 mg PO Q8HR #15 tab 06/22/24 Ondansetron Odt [Zofran Odt] 4 mg PO Q8HR PRN #10 tab 06/22/24 Allergies Allergy/AdvReac Type Severity Reaction Status Date / Time Iodinated Contrast Media Allergy Anaphylaxis Verified 06/25/24 08:54 Review of Systems ROS Statement: Those systems with pertinent positive or pertinent negative responses have been documented in the HPI. ROS Other: All systems not noted in ROS Statement are negative. Past Medical History Past Medical History: Asthma Additional Past Medical History / Comment(s): hernia on "top of stomach" History of Any Multi-Drug Resistant Organisms: None Reported Past Surgical History: No Surgical Hx Reported Additional Past Surgical History / Comment(s): wisdom teeth Past Anesthesia/Blood Transfusion Reactions: No Reported Reaction Past Psychological History: ADD/ADHD, Anxiety, Bipolar, Depression Smoking Status: Vaper Past Alcohol Use History: None Reported Past Drug Use History: Marijuana - Past Family History Father Family Medical History: Diabetes Mellitus Mother Family Medical History: Diabetes Mellitus General Exam - General Exam Comments Initial Comments: PE: CONSTITUTIONAL: No apparent distress, uncomfortable appearing, curled in the position, tearful nontoxic SKIN: Warm, dry, no jaundice, hives or petechiae EYES: Pupils are equally round, extraocular movements intact without nystagmus, clear conjunctiva, non-icteric sclera HENT: Normocephalic, atraumatic, moist mucus membranes, oropharynx clear without exudates NECK: , Full range of motion, normal appearance PULMONARY: Clear to auscultation without wheezes, rhonchi, or rales, normal excursion, no accessory muscle use and no stridor CARDIOVASCULAR: Regular rate, rhythm, normal S1 and S2. No appreciated murmurs, rubs or gallops. Strong radial pulses with intact distal perfusion. No lower extremity edema GASTROINTESTINAL: Soft, active bowel sounds throughout, positive Jeffries sign, right upper quadrant tenderness to palpation, non-distended, no palpable masses, no rebound ; guarding with palpation of the right upper quadrant, positive right-sided CVA tenderness, no hepatosplenomegaly GENITOURINARY: MUSCULOSKELETAL: Extremities have no gross deformity, no edema, redness, or swelling. NEUROLOGIC:_a/o x 3, GCS 15, normal mentation and speech. Moves all extremities x 4 without motor or sensory deficit PSYCHIATRIC:_normal mood and affect, thought process is clear and linear Limitations: no limitations Course Vital Signs 06/24/24 06/24/24 06/24/24 01:24 02:16 03:30 Temperature 97.8 F Pulse Rate 92 66 64 Respiratory 18 18 18 Rate Blood Pressure 138/85 116/65 112/50 O2 Sat by Pulse 99 100 100 Oximetry 06/24/24 06/24/24 06/24/24 05:00 09:01 10:53 Temperature 97.7 F Pulse Rate 64 82 52 L Respiratory 18 20 20 Rate Blood Pressure 120/85 115/71 127/75 O2 Sat by Pulse 99 97 95 Oximetry 06/24/24 06/24/24 06/24/24 12:35 16:11 18:02 Temperature 98.3 F Pulse Rate 50 L 57 L 58 L Respiratory 20 18 20 Rate Blood Pressure 136/84 127/70 129/71 O2 Sat by Pulse 95 99 96 Oximetry 06/24/24 19:32 Temperature 98.2 F Pulse Rate 56 L Respiratory 16 Rate Blood Pressure 119/70 O2 Sat by Pulse 96 Oximetry Medical Decision Making - Medical Decision Making Was pt. sent in by a medical professional or institution (, PA, FRAMEMAN, urgent care, hospital, or group home...) When possible be specific @ -[No] Did you speak to anyone other than the patient for history (EMS, parent, family, police, friend...)? What history was obtained from this source @ -No Did you review nursing and triage notes (agree or disagree)? Why? @ -I reviewed nursing and triage notes states patient presents for a visit for abdominal pain 3 weeks minimal vaginal bleeding, I agreewith triage note Were old charts reviewed (outside hosp., previous admission, EMS record, old EKG, old radiological studies, urgent care reports/EKG's, group home records)? Report findings @ -Medical records reviewed reviewed ultrasound of the gallbladder performed yesterday and patient had presented for right upper quadrant pain, showed cholelithiasis while cholelithiasis, and enlarged gallbladder of 10.8 cm with mobile echogenic foci, CBD 0.4 cm Differential Diagnosis (chest pain, altered mental status, abdominal pain women, abdominal pain men, vaginal bleeding, weakness, fever, dyspnea, syncope, h eadache, dizziness, GI bleed, back pain, seizure, CVA, palpatations, mental health, musculoskeletal)? @Differential Abdominal Pain Women: Appendicitis, Cholecystitis, diverticulosis, ischemic bowel, pancreatitis, hepatitis, UTI, gastroenteritis, incarcerated hernia, bowel obstruction, constipation, inflammatory bowel, hepatitis, peptic ulcer disease, splenic infarction, perforated viscus, vulvitis, ovarian torsion, PID, kidney stone, placenta abruption, this is not meant to be an all-inclusive list EKG interpreted by me (3pts min.). @ -As above X-rays interpreted by me (1pt min.). @ -None done CT interpreted by me (1pt min.). @I personally reviewed CT scan, appears to show fat stranding around the gallbladder and an enlarged gallbladder concerning for cholecystitis, agrees radiologist interpretation U/S interpreted by me (1pt. min.). @ -None done What testing was considered but not performed or refused? (CT, X-rays, U/S, labs)? Why? Ultrasound of the right upper quadrant was considered however patient had this performed yesterday, ultrasound is not available overnight, CT scan was not done yesterday, obtained to rule out additional underlying intra-abdominal pathology What meds were considered but not given or refused? Why? @ -None Did you discuss the management of the patient with other professionals (professionals i.e. Dr., PA, FRAMEMAN, lab, RT, psych nurse, social work job titles, security assessor, teacher, sba business development officer, outpatient case manager)? Give summary @ -No Was smoking cessation discussed for >3mins.? @ -No Was critical care preformed (if so, how long)? @ -No Were there social determinants of health that impacted care today? How? (Homelessness, low income, unemployed, alcoholism, drug addiction, transportation, low edu. Level, literacy, decrease access to med. care, halfway, rehab)? @ -No Was there de-escalation of care discussed even if they declined (Discuss DNR or withdrawal of care, Hospice)? @ -No What co-morbidities impacted this encounter? (DM, HTN, Smoking, COPD, CAD, Cancer, CVA, ARF, Chemo, Hep., AIDS, mental health diagnosis, sleep apnea, morbid obesity)? @ -None Was patient admitted / discharged? Hospital course, mention meds given and route, prescriptions, significant lab abnormalities, going to OR and other pertinent info. @Admission-this is a pleasant 18-year-old female 3 weeks presenting today for right upper quadrant pain. Presented yesterday for similar and was told that she has gallstones. Feels it is likely her gallbladder. Vital signs within acceptable limits on arrival. She is afebrile. On my assessment she is painful appearing, curled the position, nontoxic. Exam significant for right upper quadrant is palpation, positive Jeffries sign, remainder of the abdomen is mildly tender to palpation throughout without other focal tenderness, active bowel sounds present, abdomen nondistended. Ultrasound is not available at this facility overnight so we will obtain a CT abdomen pelvis to rule out additional pathology and evaluate for signs of inflammation around the gallbladder as well. Pain control, IV fluids and basic labs obtained as well. Patient agreeable with plan. On reassessment patient remains painful though is somewhat more comfortable appearing. States pain did improve with morphine though has since returned. Will order additional pain control. CT scan shows concerns for cholecystitis, I agree with interpretation this is consistent with patient's clinical picture. Of note she does not have any leukocytosis; T. bili 0.9, AST 49, ALT 20 lipase within normal limits. Given findings of cholecystitis on CT scan, ordered's Rocephin and Flagyl. Anticipate admission to general surgery. Case discussed w/ Dr. Arana, kindly accepts pt for admission. Keep NPO, will likely take to OR today. Pt updated to plan of care. Undiagnosed new problem with uncertain prognosis? @ -No Drug Therapy requiring intensive monitoring for toxicity (Heparin, Nitro, Insulin, Cardizem)? @ -No Were any procedures done? @ -No Diagnosis/symptom? @ -Acute cholecystitis Acute, or Chronic, or Acute on Chronic? @ -Acute Uncomplicated (without systemic symptoms) or Complicated (systemic symptoms)? @ -Complicated Side effects of treatment? @ -No Exacerbation, Progression, or Severe Exacerbation? @ -No Poses a threat to life or bodily function? How? (Chest pain, [place], [place], pneumonia, PE, COPD, DKA, ARF, appy, cholecystitis, CVA, Diverticulitis, Homicidal, Suicidal, threat to staff... and all critical care pts) @ Yes if left untreated could progress to sepsis or septic shock and - Lab Data Result diagrams: 06/25/24 05:41 06/26/24 06:26 Lab Results 06/24/24 06/24/24 06/24/24 Range/Units 02:29 02:29 02:29 WBC 7.3 (4.0-11.0) k/uL RBC 4.73 (3.80-5.40) m/uL Hgb 11.9 (11.4-16.0) gm/dL Hct 38.5 (34.0-46.0) % MCV 81.5 (80.0-100.0) fL MCH 25.2 (25.0-35.0) pg MCHC 30.9 L (31.0-37.0) g/dL RDW 14.1 (11.5-15.5) % Plt Count 244 (150-450) k/uL MPV 9.3 Neutrophils % 68 % Lymphocytes % 21 % Monocytes % 4 % Eosinophils % 5 % Basophils % 0 % Neutrophils # 4.9 (1.3-7.7) k/uL Lymphocytes # 1.5 (1.0-4.8) k/uL Monocytes # 0.3 (0-1.0) k/uL Eosinophils # 0.4 (0-0.7) k/uL Basophils # 0.0 (0-0.2) k/uL PT 10.4 (10.0-12.5) sec INR 0.9 (<1.2) APTT 22.9 (22.0-30.0) sec Sodium 136 L (137-145) mmol/L Potassium 3.6 (3.5-5.1) mmol/L Chloride 104 (98-107) mmol/L Carbon Dioxide 24 (22-30) mmol/L Anion Gap 8 mmol/L BUN 11 (7-17) mg/dL Creatinine 0.86 (0.52-1.04) mg/dL Est GFR (CKD-EPI)AfAm >90 (>60 ml/min/1.73 sqM) Est GFR (CKD-EPI)NonAf >90 (>60 ml/min/1.73 sqM) Glucose 115 H (74-99) mg/dL Plasma Lactic Acid Reyes (0.7-2.0) mmol/L Calcium 9.0 (8.4-10.2) mg/dL Total Bilirubin 0.9 (0.2-1.3) mg/dL AST 49 H (14-36) U/L ALT 20 (4-34) U/L Alkaline Phosphatase 105 (38-126) U/L Total Protein 6.5 (6.3-8.2) g/dL Albumin 3.7 (3.5-5.0) g/dL Amylase 52 (30-110) U/L Lipase 149 (23-300) U/L Urine Color Urine Appearance (Clear) Urine pH (5.0-8.0) Ur Specific [place] (1.001-1.035) Urine Protein (Negative) Urine Glucose (UA) (Negative) Urine Ketones (Negative) Urine Blood (Negative) Urine Nitrite (Negative) Urine Bilirubin (Negative) Urine Urobilinogen (<2.0) mg/dL Ur Leukocyte Esterase (Negative) Urine RBC (0-5) /hpf Urine WBC (0-5) /hpf Ur Squamous Epith Cells (0-4) /hpf Urine Bacteria (None) /hpf Urine Mucus (None) /hpf Urine HCG, Qual (Not Detectd) 06/24/24 06/24/24 06/24/24 Range/Units 02:29 03:19 03:19 WBC (4.0-11.0) k/uL RBC (3.80-5.40) m/uL Hgb (11.4-16.0) gm/dL Hct (34.0-46.0) % MCV (80.0-100.0) fL MCH (25.0-35.0) pg MCHC (31.0-37.0) g/dL RDW (11.5-15.5) % Plt Count (150-450) k/uL MPV Neutrophils % % Lymphocytes % % Monocytes % % Eosinophils % % Basophils % % Neutrophils # (1.3-7.7) k/uL Lymphocytes # (1.0-4.8) k/uL Monocytes # (0-1.0) k/uL Eosinophils # (0-0.7) k/uL Basophils # (0-0.2) k/uL PT (10.0-12.5) sec INR (<1.2) APTT (22.0-30.0) sec Sodium (137-145) mmol/L Potassium (3.5-5.1) mmol/L Chloride (98-107) mmol/L Carbon Dioxide (22-30) mmol/L Anion Gap mmol/L BUN (7-17) mg/dL Creatinine (0.52-1.04) mg/dL Est GFR (CKD-EPI)AfAm (>60 ml/min/1.73 sqM) Est GFR (CKD-EPI)NonAf (>60 ml/min/1.73 sqM) Glucose (74-99) mg/dL Plasma Lactic Acid Reyes 0.9 (0.7-2.0) mmol/L Calcium (8.4-10.2) mg/dL Total Bilirubin (0.2-1.3) mg/dL AST (14-36) U/L ALT (4-34) U/L Alkaline Phosphatase (38-126) U/L Total Protein (6.3-8.2) g/dL Albumin (3.5-5.0) g/dL Amylase (30-110) U/L Lipase (23-300) U/L Urine Color Yellow Urine Appearance Cloudy H (Clear) Urine pH 6.5 (5.0-8.0) Ur Specific [place] 1.016 (1.001-1.035) Urine Protein Negative (Negative) Urine Glucose (UA) Negative (Negative) Urine Ketones Negative (Negative) Urine Blood Small H (Negative) Urine Nitrite Negative (Negative) Urine Bilirubin Negative (Negative) Urine Urobilinogen 3.0 (<2.0) mg/dL Ur Leukocyte Esterase Large H (Negative) Urine RBC 3 (0-5) /hpf Urine WBC 77 H (0-5) /hpf Ur Squamous Epith Cells 8 H (0-4) /hpf Urine Bacteria Rare H (None) /hpf Urine Mucus Occasional H (None) /hpf Urine HCG, Qual Not Detected (Not Detectd) Disposition Clinical Impression: Acute cholecystitis Disposition: ADMITTED IP TO THIS [facility] Condition: Stable
[2024-06-24] MEDS: SODIUM CHLORIDE 0.9% 1,000 ML IV ONE (02:15)
[2024-06-24] MEDS: ONDANSETRON 4 MG/2 ML VIAL IVP STA (02:17)
[2024-06-24] MEDS: MORPHINE SULFATE 4 MG/ML SYRINGE IVP STA (02:17)
[2024-06-24] MEDS: KETOROLAC 15 MG/ML 1 ML VIAL IVP STA (02:19)
[2024-06-24 02:55] LABS: ALT 20 U/L (4-34); AST 49 U/L (14-36); African American GFR (CKD) >90 (>60 ml/min/1.73 sqM); Albumin 3.7 g/dL (3.5-5.0); Alkaline Phosphatase 105 U/L (38-126); Amylase 52 U/L (30-110); Anion Gap 8 mmol/L; Blood Urea Nitrogen 11 mg/dL (7-17); Carbon Dioxide 24 mmol/L (22-30); Chloride 104 mmol/L (98-107); Glucose 115 mg/dL (74-99); Lipase 149 U/L (23-300); Non-African American GFR(CKD) >90 (>60 ml/min/1.73 sqM); Potassium 3.6 mmol/L (3.5-5.1); Sodium 136 mmol/L (137-145); Total Bilirubin 0.9 mg/dL (0.2-1.3); Total Protein 6.5 g/dL (6.3-8.2)
[2024-06-24 03:01] LABS: INR 0.9 (<1.2); Partial Thromboplastin Time 22.9 sec (22.0-30.0); Prothrombin Time 10.4 sec (10.0-12.5)
[2024-06-24 03:04] LABS: Basophils % (A) 0 %; Eosinophils # (A) 0.4 k/uL (0-0.7); Eosinophils % (A) 5 %; HCT 38.5 % (34.0-46.0); HGB 11.9 gm/dL (11.4-16.0); Lymphocytes # (A) 1.5 k/uL (1.0-4.8); Lymphocytes % (A) 21 %; MCH 25.2 pg (25.0-35.0); MCHC 30.9 g/dL (31.0-37.0); MCV 81.5 fL (80.0-100.0); Mean Platelet Volume 9.3; Monocytes # (A) 0.3 k/uL (0-1.0); Monocytes % (A) 4 %; Neutrophils # (A) 4.9 k/uL (1.3-7.7); Neutrophils % (A) 68 %; Platelet Count 244 k/uL (150-450); RBC 4.73 m/uL (3.80-5.40); RDW 14.1 % (11.5-15.5); WBC 7.3 k/uL (4.0-11.0)
--- NOTE | 2024-06-24 04:31 | CT ---
EXAM: CT Abdomen and Pelvis Without Intravenous Contrast CLINICAL HISTORY: ITS.REASON CT Reason: RUQ + diffuse ab. pain. 3 wk PP, distended GB yest TECHNIQUE: Axial computed tomography images of the abdomen and pelvis without intravenous contrast. CTDI is 8.8 mGy and DLP is 498.8 mGy-cm. This CT exam was performed using one or more of the following dose reduction techniques: automated exposure control, adjustment of the mA and/or kV according to patient size, and/or use of iterative reconstruction technique. COMPARISON: No relevant prior studies available. FINDINGS: Limitations: Limited evaluation in the absence of contrast. Lung bases: Unremarkable. No mass. No consolidation. ABDOMEN: Liver: Unremarkable. Gallbladder and bile ducts: Diffuse stranding surrounding the gallbladder. No visualized calculi detected. Findings are favored to relate to cholecystitis. Consider correlation with laboratory values. If there is further concern, consider HIDA imaging. No ductal dilation. Pancreas: Unremarkable. No ductal dilation. Spleen: Small splenule. Adrenals: Unremarkable. No mass. Kidneys and ureters: No evidence of radiopaque renal calculi or signs of collecting system dilatation. Stomach and bowel: No evidence of bowel obstruction. No mucosal thickening. PELVIS: Appendix: Normal appendix. Bladder: Unremarkable. No stones. Reproductive: Unremarkable as visualized. ABDOMEN and PELVIS: Intraperitoneal space: Mild pelvic free fluid which may be physiologic or reactive in nature. No free air. Bones/joints: No acute fracture. No dislocation. Soft tissues: Umbilical hernia containing fat. Vasculature: Unremarkable. No abdominal aortic aneurysm. Lymph nodes: Unremarkable. No enlarged lymph nodes. IMPRESSION: 1. Limited evaluation in the absence of contrast. 2. No evidence of radiopaque renal calculi or signs of collecting system dilatation. 3. Diffuse stranding surrounding the gallbladder. No visualized calculi detected. Findings are favored to relate to cholecystitis. Consider correlation with laboratory values. If there is further concern, consider HIDA imaging. 4. Mild pelvic free fluid which may be physiologic or reactive in nature. <MYCVCSECTION> Communications: 06/24/24 04:43 Verify Receipt Verified receipt with [facility] report to Dr. Briscoe on 06/24 04:44 (-04:00)
[2024-06-24] MEDS: HYDROmorphone 1 MG/ML 1 ML SYRINGE IVP STA (04:51)
[2024-06-24] MEDS: metroNIDAZOLE-NS PMX 500 MG in SALINE 1 100ML.BAG IVPB STA (04:55)
[2024-06-24] MEDS: cefTRIAXone IN SWFI 1,000 MG/10 ML SYRINGE IVP STA (04:56)
[2024-06-24 05:16] LABS: Appearance,Urine Cloudy (Clear); Bacteria,Urine Rare /hpf; Bilirubin,Urine Negative (Negative); Blood,Urine Small (Negative); Color,Urine Yellow; Glucose,Urine (UA) Negative (Negative); Ketones,Urine Negative (Negative); Leukocyte Esterase,Urine Large (Negative); Mucus,Urine Occasional /hpf; Nitrite,Urine Negative (Negative); PH, Urine 6.5 (5.0-8.0); Protein,Urine Negative (Negative); RBC,Urine 3 /hpf (0-5); Specific Gravity,Urine 1.016 (1.001-1.035); Squamous Epithelial Cell,Urine 8 /hpf (0-4); WBC,Urine 77 /hpf (0-5)
[2024-06-24] MEDS ORDERED: NALOXONE 0.4 MG/ML 1 ML VIAL IV PRN (05:46)
[2024-06-24] MEDS ORDERED: HYDROmorphone 1 MG/ML 1 ML SYRINGE IVP PRN (05:46)
[2024-06-24] MEDS: SODIUM CHLORIDE 0.9% 1,000 ML IV SCH (06:11)
[2024-06-24] MEDS: ONDANSETRON 4 MG/2 ML VIAL IVP PRN ×2 (06:42→20:26)
[2024-06-24] MEDS: PANTOPRAZOLE 40 MG/10 ML VIAL IV SCH (09:04)
[2024-06-24] MEDS: HYDROmorphone 0.5 MG/0.5 ML SYRINGE IVP PRN (09:57)
--- NOTE | 2024-06-24 11:01 | P.GSHP ---
History of Present Illness H&P Date: 06/24/24 CHIEF COMPLAINT: Abdominal pain HISTORY OF PRESENT ILLNESS: This is a 18-year-old female who presented to the hospital with complaint of right upper quadrant abdominal pain. This is her second ER visit for this right upper quadrant pain. Patient was seen in the ER on June 22 and had evidence of gallstones on ultrasound. She was discharged home from the ER. Patient reports yesterday she ate corn beef with cabbage and the pain returned. She has been having nausea dry heaves. She is also been having chills. She is [address] scan abdomen pelvis had reported diffuse stranding around the gallbladder findings are consistent with cholecystitis. Patient admitted to surgical service. She denies any prior abdominal surgeries. Denies any cardiac history. Patient does report family history of gallbladder disease requiring cholecystectomy's. PAST MEDICAL HISTORY: Asthma, hiatal hernia, anxiety, bipolar, depression PAST SURGICAL HISTORY: See below MEDICATIONS: See below ALLERGIES: See below SOCIAL HISTORY: No illicit drug use. Marijuana REVIEW OF SYSTEMS: CONSTITUTIONAL: Denies fever or chills. HEENT: Denies blurred vision, vision changes, or eye pain. Denies hemoptysis CARDIOVASCULAR: Denies chest pain or pressure. RESPIRATORY: No shortness of breath. GASTROINTESTINAL: See HPI for pertinent findings HEMATOLOGIC: Denies bleeding disorders. GENITOURINARY: Denies any blood in urine or increased urinary frequency. SKIN: Denies pruitis. Denies rash. PHYSICAL EXAM: VITAL SIGNS: Reviewed GENERAL: Well-developed in no acute distress. HEENT: No sclera icterus. Extraocular movements grossly intact. Moist buccal mucosa. Head is atraumatic, normocephalic. No nasal drainage. ABDOMEN: Soft. Nondistended. Tenderness palpation epigastric and right upper quadrant areas. No rebound or guarding noted. NEUROLOGIC: Alert and oriented. Cranial nerves II through XII grossly intact. LABORATORY DATA: WBC 7.3 Hgb 11.9 platelets 244 Sodium 136 potassium 3.6 creatinine 0.86 Lactic acid 0.9 Total bilirubin 0.9 AST 49 ALT 20 alk phos 105 Lipase 149 IMAGING: CT scan abdomen and pelvis reports diffuse stranding surrounding the gallbladder. No visualized calculi detected. Findings favored to relate to cholecystitis. Mild pelvic free fluid which may be physiologic or reactive in nature. Gallbladder ultrasound from 06/22/2024 reports cholelithiasis ASSESSMENT: 1. Acute cholecystitis 2. Cholelithiasis PLAN: -Patient scheduled for laparoscopic cholecystectomy today with Dr. Lomax -Keep patient n.p.o. -Continue antibiotics -Change pain medication back to IV morphine as needed. Patient reports the Dilaudid is too strong -Continue antiemetics as needed -Continue IV fluids Physician Windscreen Fitter note has been reviewed by physician. Signing provider agrees with the documented findings, assessment, and plan of care. Past Medical History Past Medical History: Asthma Additional Past Medical History / Comment(s): hernia on "top of stomach" History of Any Multi-Drug Resistant Organisms: None Reported Past Surgical History: No Surgical Hx Reported Additional Past Surgical History / Comment(s): wisdom teeth Past Anesthesia/Blood Transfusion Reactions: No Reported Reaction Past Psychological History: ADD/ADHD, Anxiety, Bipolar, Depression Smoking Status: Vaper Past Alcohol Use History: None Reported Past Drug Use History: Marijuana - Past Family History Father Family Medical History: Diabetes Mellitus Mother Family Medical History: Diabetes Mellitus Medications and Allergies Home Medications Medication Instructions Recorded Confirmed Type Ketorolac [Toradol] 10 mg PO Q8HR #15 tab 06/22/24 06/24/24 Rx Ondansetron Odt [Zofran Odt] 4 mg PO Q8HR PRN #10 tab 06/22/24 06/24/24 Rx Albuterol Inhaler [Ventolin Hfa 1 puff INHALATION RT-QID PRN 06/24/24 06/24/24 History Inhaler] diphenhydrAMINE HCL [Benadryl] 25 mg PO BID PRN 06/24/24 06/24/24 History Allergies Allergy/AdvReac Type Severity Reaction Status Date / Time Iodinated Contrast Media Allergy Anaphylaxis Verified 06/24/24 08:03 Surgical - Exam Vital Signs Temp Pulse Resp BP Pulse Ox 97.8 F 92 18 138/85 99 06/24/24 01:24 06/24/24 01:24 06/24/24 01:24 06/24/24 01:24 06/24/24 01:24 Results - Labs 06/24/24 02:29 06/24/24 02:29 Abnormal Lab Results - Last 24 Hours (Table) 06/24/24 06/24/24 06/24/24 Range/Units 02:29 02:29 03:19 MCHC 30.9 L (31.0-37.0) g/dL Sodium 136 L (137-145) mmol/L Glucose 115 H (74-99) mg/dL AST 49 H (14-36) U/L Urine Appearance Cloudy H (Clear) Urine Blood Small H (Negative) Ur Leukocyte Esterase Large H (Negative) Urine WBC 77 H (0-5) /hpf Ur Squamous Epith Cells 8 H (0-4) /hpf Urine Bacteria Rare H (None) /hpf Urine Mucus Occasional H (None) /hpf Diabetes panel 06/24/24 Range/Units 02:29 Sodium 136 L (137-145) mmol/L Potassium 3.6 (3.5-5.1) mmol/L Chloride 104 (98-107) mmol/L Carbon Dioxide 24 (22-30) mmol/L BUN 11 (7-17) mg/dL Creatinine 0.86 (0.52-1.04) mg/dL Glucose 115 H (74-99) mg/dL Calcium 9.0 (8.4-10.2) mg/dL AST 49 H (14-36) U/L ALT 20 (4-34) U/L Alkaline Phosphatase 105 (38-126) U/L Total Protein 6.5 (6.3-8.2) g/dL Albumin 3.7 (3.5-5.0) g/dL Calcium panel 06/24/24 Range/Units 02:29 Calcium 9.0 (8.4-10.2) mg/dL Albumin 3.7 (3.5-5.0) g/dL Pituitary panel 06/24/24 Range/Units 02:29 Sodium 136 L (137-145) mmol/L Potassium 3.6 (3.5-5.1) mmol/L Chloride 104 (98-107) mmol/L Carbon Dioxide 24 (22-30) mmol/L BUN 11 (7-17) mg/dL Creatinine 0.86 (0.52-1.04) mg/dL Glucose 115 H (74-99) mg/dL Calcium 9.0 (8.4-10.2) mg/dL Adrenal panel 06/24/24 Range/Units 02:29 Sodium 136 L (137-145) mmol/L Potassium 3.6 (3.5-5.1) mmol/L Chloride 104 (98-107) mmol/L Carbon Dioxide 24 (22-30) mmol/L BUN 11 (7-17) mg/dL Creatinine 0.86 (0.52-1.04) mg/dL Glucose 115 H (74-99) mg/dL Calcium 9.0 (8.4-10.2) mg/dL Total Bilirubin 0.9 (0.2-1.3) mg/dL AST 49 H (14-36) U/L ALT 20 (4-34) U/L Alkaline Phosphatase 105 (38-126) U/L Total Protein 6.5 (6.3-8.2) g/dL Albumin 3.7 (3.5-5.0) g/dL
[2024-06-24] MEDS: metroNIDAZOLE-NS PMX 500 MG in SALINE 1 100ML.BAG IVPB SCH (11:13)
[2024-06-24] MEDS: MORPHINE SULFATE 4 MG/ML SYRINGE IVP PRN ×2 (12:38→16:15)
[2024-06-24] MEDS: KETOROLAC 15 MG/ML 1 ML VIAL IVP PRN (16:14)
[2024-06-25 06:14] LABS: Basophils % (A) 1 %; Eosinophils # (A) 0.4 k/uL (0-0.7); Eosinophils % (A) 10 %; HCT 35.2 % (34.0-46.0); HGB 11.5 gm/dL (11.4-16.0); Hypochromasia Moderate; Lymphocytes # (A) 1.5 k/uL (1.0-4.8); Lymphocytes % (A) 35 %; MCH 26.1 pg (25.0-35.0); MCHC 32.5 g/dL (31.0-37.0); MCV 80.5 fL (80.0-100.0); Mean Platelet Volume 8.4; Monocytes # (A) 0.2 k/uL (0-1.0); Monocytes % (A) 5 %; Neutrophils % (A) 47 %; Platelet Count 203 k/uL (150-450); RBC 4.38 m/uL (3.80-5.40); RDW 13.8 % (11.5-15.5); WBC 4.3 k/uL (4.0-11.0)
[2024-06-25 06:22] LABS: ALT 154 U/L (4-34); AST 192 U/L (14-36); African American GFR (CKD) >90 (>60 ml/min/1.73 sqM); Albumin 2.9 g/dL (3.5-5.0); Alkaline Phosphatase 178 U/L (38-126); Anion Gap 7 mmol/L; Blood Urea Nitrogen 5 mg/dL (7-17); Calcium 8.9 mg/dL (8.4-10.2); Carbon Dioxide 23 mmol/L (22-30); Chloride 106 mmol/L (98-107); Glucose 96 mg/dL (74-99); Non-African American GFR(CKD) >90 (>60 ml/min/1.73 sqM); Potassium 3.7 mmol/L (3.5-5.1); Sodium 136 mmol/L (137-145); Total Bilirubin 1.4 mg/dL (0.2-1.3); Total Protein 5.4 g/dL (6.3-8.2)
[2024-06-25] MEDS ORDERED: HYDROmorphone 0.5 MG/0.5 ML SYRINGE IVP PRN (07:00)
[2024-06-25] MEDS: IV FLUID CONTINUATION 400 ML IV ONE (08:57)
[2024-06-25] MEDS: DEXAMETHASONE SOD PHOSPHATE 4 MG/ML 1 ML VIAL IV ONE (09:25)
[2024-06-25] MEDS: HEPARIN SODIUM,PORCINE 5,000 UNIT/ML 1 ML VIAL SQ STA (09:25)
[2024-06-25] MEDS ORDERED: LIDOCAINE 1% INJ 10MG/ML (20 ML MDV) ONE (09:58)
[2024-06-25] MEDS ORDERED: KETOROLAC 15 MG/ML 1 ML VIAL ONE (09:58)
[2024-06-25] MEDS ORDERED: PROPOFOL 10 MG/ML 20 ML VIAL IV ONE (09:58)
[2024-06-25] MEDS ORDERED: NEOSTIGMINE 1 MG/ML 10 ML VIAL ONE (09:58)
[2024-06-25] MEDS ORDERED: fentaNYL (PF) 50 MCG/ML 2 ML AMP ONE (09:58)
[2024-06-25] MEDS ORDERED: MIDAZOLAM 2 MG/2 ML VIAL ONE (09:58)
[2024-06-25] MEDS ORDERED: GLYCOPYRROLATE 0.2 MG/ML 2 ML VIAL ONE (09:58)
[2024-06-25] MEDS ORDERED: SUCCINYLCHOLINE CHLORIDE 200 MG/10 ML VIAL IV ONE (09:58)
[2024-06-25] MEDS ORDERED: SUGAMMADEX SODIUM 100 MG/ML SYR IV ONE (09:58)
[2024-06-25] MEDS ORDERED: ROCURONIUM 10 MG/ML (5 ML VIAL) IV ONE (09:58)
[2024-06-25] MEDS: LIDOCAINE 1%-EPI 1:100,000 20 ML VIAL SQ ONE (10:21)
[2024-06-25] MEDS: LACTATED RINGERS 1,000 ML IV ONE (10:41)
--- NOTE | 2024-06-25 11:05 | P.OP ---
Date of Procedure: 06/25/24 Preoperative Diagnosis: Cholecystitis Cholelithiasis Postoperative Diagnosis: Cholecystitis Cholelithiasis Procedure(s) Performed: Laparoscopic cholecystectomy Anesthesia: NA Surgeon: Carlos Lomax Estimated Blood Loss (ml): 5 Pathology: other (Gallbladder) Condition: stable Disposition: PACU Description of Procedure: The patient was placed on the operating table. The patient received a general endotracheal tube anesthesia. The patients abdomen was prepped and draped in the usual sterile fashion. Through an infraumbilical stab incision, the fascia of the anterior abdominal wall was grasped with a pair of Kochers and then the Veress needle was placed in the peritoneal cavity. Position of the Veress needle was confirmed with positive drop test. The abdomen was then insufflated. After adequate insufflation, the 10 mm trocar was placed in the peritoneal cavity. Following this the laparoscope was placed in the peritoneal cavity. The patient was placed in the head-up, right side up position and then a 5 mm trocar was placed in the right lateral and right subcostal position under direct visualization. A 8 mm trocar was placed in the epigastric position. The gallbladder was grasped in the fundus and infundibulum. Traction on the gallbladder was placed in the lateral and the cephalad positions. The triangle of Calot was visualized.. The cystic duct was bluntly dissected until the union of the cystic duct and common bile duct was seen. A critical view of safety was achieved. The cystic duct was then divided and sealed with the Harmonic scissors. A PDS Endoloop was then placed throughout the cystic duct stump. The cystic artery divided and sealed with the Harmonic scissors. The gallbladder was then removed from the liver bed using Harmonic scissors. The gallbladder was then extracted through the epigastric port site. Operative field was checked for any bleeding spots and Harmonic scissors was used to coagulate the liver bed. The abdomen was irrigated. The trocars were removed. The skin was closed using interrupted 3-0 Vicryl suture. Dermabond dressing were applied. The patient tolerated the procedure well.
[2024-06-25] MEDS: LACTATED RINGERS 1,000 ML IV SCH (11:12)
[2024-06-25] MEDS: HYDROmorphone 1 MG/ML 1 ML SYRINGE IVP PRN (12:44)
--- NOTE | 2024-06-25 14:18 | P.PN ---
Subjective Progress Note Date: 06/25/24 SURGICAL PROGRESS NOTE CHIEF COMPLAINT: Cholecystitis HISTORY OF PRESENT ILLNESS: Patient status post laparoscopic cholecystectomy today. Patient reports pain at incision site epigastric area. She denies any nausea or vomiting. Denies any bowel activity. She feels that she is not emptying her bladder fully. She also reports that her urine is dark. Afebrile. WBC 4.3 total bilirubin up at 1.4 LFTs elevated PHYSICAL EXAM: VITAL SIGNS: Reviewed. GENERAL: Well-developed in no acute distress. ABDOMEN: Soft. Nondistended. Tenderness at incision sites NEUROLOGIC: Alert and oriented. Cranial nerves II through XII grossly intact. ASSESSMENT: 1. Acute cholecystitis 2. Cholelithiasis 3. Elevated LFTs possibly secondary to passing of a gallstone PLAN: -BladderScan patient for possible urinary retention -Continue IV fluids -Encourage patient to drink more water -Discussed case with patient. All questions answered. -Repeat LFTs in a.m. -Continue IV antibiotics -Continue regular diet -Continue pain management. Change Toradol to scheduled. -Ice packs added as needed for pain -DVT prophylaxis [facility] Physician Garn[place] Room Worker note has been reviewed by physician. Signing provider agrees with the documented findings, assessment, and plan of care. Objective - Vital Signs Vital signs: Vital Signs Temp 97.1 F L 06/25/24 10:55 Pulse 44 L 06/25/24 11:40 Resp 16 06/25/24 11:40 BP 118/61 06/25/24 11:40 Pulse Ox 97 06/25/24 11:40 FiO2 Intake & Output 06/24/24 06/25/24 06/25/24 18:59 06:59 18:59 Intake Total 600 Output Total 5 Balance 595 Weight 65.771 kg Intake: IV 600 Output: Estimated Blood Loss 5 Other: # Voids 1 - Labs CBC & Chem 7: 06/25/24 05:41 06/25/24 05:41 Labs: Abnormal Lab Results - Last 24 Hours (Table) 06/25/24 Range/Units 05:41 Sodium 136 L (137-145) mmol/L BUN 5 L (7-17) mg/dL Total Bilirubin 1.4 H (0.2-1.3) mg/dL AST 192 H (14-36) U/L ALT 154 H (4-34) U/L Alkaline Phosphatase 178 H (38-126) U/L Total Protein 5.4 L (6.3-8.2) g/dL Albumin 2.9 L (3.5-5.0) g/dL Microbiology - Last 24 Hours (Table) 06/24/24 03:19 Urine Culture - Final Urine,Voided
[2024-06-25] MEDS: HYDROcodone/APAP 7.5-325MG 1 EACH TAB PO PRN (14:24)
[2024-06-25] MEDS: KETOROLAC 15 MG/ML 1 ML VIAL IVP SCH (14:28)
[2024-06-26 07:26] LABS: Prothrombin Time 10.6 sec (10.0-12.5)
[2024-06-26 07:43] LABS: ALT 271 U/L (4-34); AST 391 U/L (14-36); African American GFR (CKD) >90 (>60 ml/min/1.73 sqM); Alkaline Phosphatase 231 U/L (38-126); Anion Gap 7 mmol/L; Blood Urea Nitrogen 3 mg/dL (7-17); Calcium 8.8 mg/dL (8.4-10.2); Carbon Dioxide 24 mmol/L (22-30); Chloride 105 mmol/L (98-107); Glucose 127 mg/dL (74-99); Non-African American GFR(CKD) >90 (>60 ml/min/1.73 sqM); Potassium 3.6 mmol/L (3.5-5.1); Sodium 136 mmol/L (137-145); Total Bilirubin 2.2 mg/dL (0.2-1.3); Total Protein 5.6 g/dL (6.3-8.2)
[2024-06-26] MEDS: ENOXAPARIN 40 MG/0.4 ML SYRINGE SQ SCH (09:18)
--- NOTE | 2024-06-26 11:04 | P.PN ---
Subjective Progress Note Date: 06/26/24 SURGICAL PROGRESS NOTE CHIEF COMPLAINT: Cholecystitis HISTORY OF PRESENT ILLNESS: Patient is POD#1 status post laparoscopic cholecystectomy. Patient continues to complain of abdominal pain mostly epigast rhonda area. She is nauseous. She has had flatus. She had urinary retention yesterday and required Sanches catheter to be placed. Sanches catheter was removed this morning. Afebrile. Total bilirubin up from 1.4-2.2 AST 1 92-3 91 ALT 1 54-2 71 alk phos 178 up to 231 PHYSICAL EXAM: VITAL SIGNS: Reviewed. GENERAL: Well-developed in no acute distress. ABDOMEN: Soft. Nondistended. Epigastric tenderness with palpation incision sites clean dry and intact NEUROLOGIC: Alert and oriented. Cranial nerves II through XII grossly intact. ASSESSMENT: 1. Acute cholecystitis 2. Cholelithiasis 3. Elevated LFTs, possible choledocholithiasis 4. 3 weeks PLAN: -Consult GI service for possible choledocholithiasis -Repeat LFTs in a.m. -Continue IV fluids -Continue antibiotics -Continue pain management -Encourage patient to ambulate -Continue regular diet -DVT prophylaxis Lovenox today and held for possible ERCP Physician Interlocking Installer note has been reviewed by physician. Signing provider agrees with the documented findings, assessment, and plan of care. Objective - Vital Signs Vital signs: Vital Signs Temp 97.5 F L 06/25/24 23:17 Pulse 53 L 06/25/24 23:17 Resp 16 06/25/24 23:17 BP 134/76 06/25/24 23:17 Pulse Ox 99 06/25/24 23:17 FiO2 Intake & Output 06/25/24 06/26/24 06/26/24 18:59 06:59 18:59 Intake Total 1225 600 Output Total 5 1200 Balance 1220 -600 Intake: IV 600 Intake, IV Titration 325 Amount Sodium Chloride 0.9% 1, 225 000 ml @ 75 mls/hr IV . [id number] BALDEV Rx#:[id number] metroNIDAZOLE-NS PMX 500 100 mg In Saline 1 100ml.bag @ 100 mls/hr IVPB Q8H BALDEV Rx#:[id number] Oral 300 600 Output: Urine 1200 Uretheral (Sanchse) 400 Estimated Blood Loss 5 Other: # Voids 1 # Bowel Movements 0 - Labs CBC & Chem 7: 06/25/24 05:41 06/26/24 06:26 Labs: Abnormal Lab Results - Last 24 Hours (Table) 06/26/24 Range/Units 06:26 Sodium 136 L (137-145) mmol/L BUN 3 L (7-17) mg/dL Glucose 127 H (74-99) mg/dL Total Bilirubin 2.2 H (0.2-1.3) mg/dL AST 391 H (14-36) U/L ALT 271 H (4-34) U/L Alkaline Phosphatase 231 H (38-126) U/L Total Protein 5.6 L (6.3-8.2) g/dL Albumin 3.0 L (3.5-5.0) g/dL Microbiology - Last 24 Hours (Table) 06/24/24 03:19 Urine Culture - Final Urine,Voided
--- NOTE | 2024-06-26 15:35 | P.CONS ---
History of Present Illness - Reason for Consult Consult date: 06/26/24 Elevated LFTs, possible choledochollithiasis Requesting physician: Carlos Lomax - Chief Complaint Abdominal pain, Colecystitis/cholelithiasis - History of Present Illness This a pleasant 18-year-old female who had presented to the hospital with complaints of right upper quadrant abdominal pain. This was her second recent visit for right upper quadrant pain. She was seen on June 22 and had ultrasound done with evidence of gallstones. She was discharged at that time. Apparently after eating on Sunday she started having abdominal pain again associated in the right upper quadrant of her abdomen, she presented to the emergency department the next day and had a cyst CAT scan of the abdomen and pelvis with findings of diffuse stranding around the gallbladder consistent with cholecystitis. Yesterday she was noted to have some mild elevation in her total bilirubin and LFTs. Yesterday she underwent laparoscopic cholecystectomy. Today she had further elevation in her LFTs, gastroenterology was consulted for possible choledocholithiasis. Patient is 3 weeks . Patient states she has abdominal pain still in the right upper quadrant. She is currently very tired. Has some nausea but no vomiting. She is afebrile. Total bilirubin 2.2 AST 391 ALT 271 alkaline phosphatase 231. She is on IV Rocephin and Flagyl Review of Systems REVIEW OF SYSTEMS: CARDIOPULMONARY: No chest pain or shortness of breath. Gastrointestinal: Abdominal pain. Nausea without vomiting. No hematemesis, coffee-ground emesis. No rectal bleeding, or melena. GENITOURINARY: No dysuria or hematuria. MUSCULOSKELETAL: Reports normal range of motion. SKIN: No rashes. No jaundice. ENDOCRINE: No chills, fevers. No excessive weight gain or loss. No polydipsia or polyuria. PSYCHIATRIC: Unremarkable. NEUROLOGY: No change in mental status. Denies dizziness, headache. ENT: Vision unremarkable. CONSTITUTIONAL: No recent weight loss. No fever, chills, night sweats. Past Medical History Past Medical History: Asthma Additional Past Medical History / Comment(s): hernia on "top of stomach" History of Any Multi-Drug Resistant Organisms: None Reported Past Surgical History: No Surgical Hx Reported Additional Past Surgical History / Comment(s): wisdom teeth Past Anesthesia/Blood Transfusion Reactions: No Reported Reaction Past Psychological History: ADD/ADHD, Anxiety, Bipolar, Depression Additional Psychological History / Comment(s): mood disorder Smoking Status: Vaper Past Alcohol Use History: None Reported Past Drug Use History: Marijuana Additional Drug Use History / Comment(s): pt hasn't used since she found out she was - Past Family History Father Family Medical History: Diabetes Mellitus Mother Family Medical History: Diabetes Mellitus Medications and Allergies Home Medications Medication Instructions Recorded Confirmed Type Ketorolac [Toradol] 10 mg PO Q8HR #15 tab 06/22/24 06/24/24 Rx Ondansetron Odt [Zofran Odt] 4 mg PO Q8HR PRN #10 tab 06/22/24 06/24/24 Rx Albuterol Inhaler [Ventolin Hfa 1 puff INHALATION RT-QID PRN 06/24/24 06/24/24 History Inhaler] diphenhydrAMINE HCL [Benadryl] 25 mg PO BID PRN 06/24/24 06/24/24 History Allergies Allergy/AdvReac Type Severity Reaction Status Date / Time Iodinated Contrast Media Allergy Anaphylaxis Verified 06/25/24 08:54 Physical Exam Vitals: Vital Signs Temp Pulse Pulse Resp BP Pulse Ox 06/25/24 23:17 97.5 F L 53 L 16 134/76 99 06/25/24 15:00 98.0 F 46 L 17 108/77 100 06/25/24 12:40 97.9 F 61 16 108/64 100 06/25/24 12:10 98 F 76 16 118/75 99 06/25/24 11:40 44 L 16 118/61 97 06/25/24 11:25 44 L 15 136/57 100 06/25/24 11:10 50 L 16 118/55 97 06/25/24 10:55 97.1 F L 68 18 121/59 99 Intake and Output 06/25/24 06/26/24 06/26/24 22:59 06:59 14:59 Intake Total 600 Output Total 800 400 Balance -800 200 Intake: Oral 600 Output: Urine 800 400 Uretheral (Sanches) 400 General appearance: The patient is alert, oriented, appears in no acute distress. HET: Head is normocephalic and atraumatic. Conjunctiva pink. Sclera anicteric. Neck: Supple without lymphadenopathy. Trachea midline. Heart: Regular. Lungs: Equal expansion, normal respiratory effort. Abdomen: Soft, diffuse abdominal tenderness, surgical incisions well- approximated, nondistended. Skin: No rashes. No jaundice. Extremities: Normal skin color and turgor. No pedal edema. Neurological: No focal deficits. Alert and oriented x3. Results CBC & Chem 7: 06/25/24 05:41 06/26/24 06:26 Labs: Abnormal Lab Results - Last 24 Hours (Table) 06/26/24 Range/Units 06:26 Sodium 136 L (137-145) mmol/L BUN 3 L (7-17) mg/dL Glucose 127 H (74-99) mg/dL Total Bilirubin 2.2 H (0.2-1.3) mg/dL AST 391 H (14-36) U/L ALT 271 H (4-34) U/L Alkaline Phosphatase 231 H (38-126) U/L Total Protein 5.6 L (6.3-8.2) g/dL Albumin 3.0 L (3.5-5.0) g/dL Microbiology - Last 24 Hours (Table) 06/24/24 03:19 Urine Culture - Final Urine,Voided Assessment and Plan (1) Elevated LFTs Narrative/Plan: 18-year-old female had presented with abdominal pain with CT elevated and's of cholecystitis and prior ultrasound evidence with Regina lithiasis who underwent laparoscopic cholecystectomy with evidence of gallstones per surgeon. Patient has had continued increase in her LFTs. Concerns for possible choledocholithiasis. Tentatively plan for ERCP. Will continue to trend LFTs. Current Visit: Yes Status: Acute Code(s): R79.89 - OTHER SPECIFIED ABNORMAL FINDINGS OF BLOOD CHEMISTRY SNOMED Code(s): 413491959 (2) Cholelithiasis Current Visit: Yes Status: Acute Code(s): K80.20 - CALCULUS OF GALLBLADDER W/O CHOLECYSTITIS W/O OBSTRUCTION SNOMED Code(s): 602394998 (3) Acute cholecystitis Current Visit: Yes Status: Acute Code(s): K81.0 - ACUTE CHOLECYSTITIS SNOMED Code(s): 52206168 Plan: 1. Continue symptomatic and supportive care 2. Patient may have clear liquid breakfast then n.p.o. 3. Hold anticoagulation 4. Continue antibiotics as ordered 5. Pain medication per general surgery 6. Antiemetics as needed 7. Repeat CBC, CMP tomorrow 8. Tentative plan for ERCP tomorrow afternoon Thank you for this consultation, we will continue to follow. Dr. Tona Montero I agree with the dictator's note, documented as a scribe by Karina Tafoya.
--- NOTE | 2024-06-26 16:13 | P.GSCN ---
History of Present Illness Consult date: 06/26/24 Reason for Consult: Urinary retention Requesting physician: Carlos Lomax History of present illness: The patient is a 18-year-old woman with an unremarkable urologic history. She delivered her first baby by vaginal delivery 1 month ago. She states that she has not experienced any voiding difficulty since the delivery. However, she was then admitted June 24 with right upper quadrant abdominal pain and underwent a cholecystectomy yesterday for cholecystitis. She experienced voiding difficulty at the time of admission, stating that it took up to an hour to void. She underwent Sanches catheter insertion with return of approximately 1 L of urine (per patient). After undergoing the cholecystectomy yesterday, her Sanches catheter was removed this morning but she again required Sanches catheter placement for difficulty voiding. She states that approximately 300 cc of urine was obtained upon catheter placement today. She has been treated for occasional UTIs in the past. She denies any prior history of urolithiasis. Review of Systems - Genitourinary Genitourinary: Reports as per HPI Past Medical History Past Medical History: Asthma Additional Past Medical History / Comment(s): hernia on "top of stomach" History of Any Multi-Drug Resistant Organisms: None Reported Past Surgical History: No Surgical Hx Reported Additional Past Surgical History / Comment(s): wisdom teeth Past Anesthesia/Blood Transfusion Reactions: No Reported Reaction Past Psychological History: ADD/ADHD, Anxiety, Bipolar, Depression Smoking Status: Vaper Past Alcohol Use History: None Reported Past Drug Use History: Marijuana - Past Family History Father Family Medical History: Diabetes Mellitus Mother Family Medical History: Diabetes Mellitus Medications and Allergies Home Medications Medication Instructions Recorded Confirmed Type Ketorolac [Toradol] 10 mg PO Q8HR #15 tab 06/22/24 06/24/24 Rx Ondansetron Odt [Zofran Odt] 4 mg PO Q8HR PRN #10 tab 06/22/24 06/24/24 Rx Albuterol Inhaler [Ventolin Hfa 1 puff INHALATION RT-QID PRN 06/24/24 06/24/24 History Inhaler] diphenhydrAMINE HCL [Benadryl] 25 mg PO BID PRN 06/24/24 06/24/24 History Allergies Allergy/AdvReac Type Severity Reaction Status Date / Time Iodinated Contrast Media Allergy Anaphylaxis Verified 06/25/24 08:54 Surgical - Exam Vital Signs Temp Pulse Resp BP Pulse Ox 97.8 F 92 18 138/85 99 06/24/24 01:24 06/24/24 01:24 06/24/24 01:24 06/24/24 01:24 06/24/24 01:24 - General well developed, well nourished, no distress - Respiratory normal respiratory effort - Abdomen Soft, non-distended. Incisions clean and dry. - Psychiatric oriented to time, oriented to person, oriented to place, speech is normal, memory intact Results - Labs 06/25/24 05:41 06/26/24 06:26 Abnormal Lab Results - Last 24 Hours (Table) 06/26/24 Range/Units 06:26 Sodium 136 L (137-145) mmol/L BUN 3 L (7-17) mg/dL Glucose 127 H (74-99) mg/dL Total Bilirubin 2.2 H (0.2-1.3) mg/dL AST 391 H (14-36) U/L ALT 271 H (4-34) U/L Alkaline Phosphatase 231 H (38-126) U/L Total Protein 5.6 L (6.3-8.2) g/dL Albumin 3.0 L (3.5-5.0) g/dL Diabetes panel 06/26/24 Range/Units 06:26 Sodium 136 L (137-145) mmol/L Potassium 3.6 (3.5-5.1) mmol/L Chloride 105 (98-107) mmol/L Carbon Dioxide 24 (22-30) mmol/L BUN 3 L (7-17) mg/dL Creatinine 0.69 (0.52-1.04) mg/dL Glucose 127 H (74-99) mg/dL Calcium 8.8 (8.4-10.2) mg/dL AST 391 H (14-36) U/L ALT 271 H (4-34) U/L Alkaline Phosphatase 231 H (38-126) U/L Total Protein 5.6 L (6.3-8.2) g/dL Albumin 3.0 L (3.5-5.0) g/dL Calcium panel 06/26/24 Range/Units 06:26 Calcium 8.8 (8.4-10.2) mg/dL Albumin 3.0 L (3.5-5.0) g/dL Pituitary panel 06/26/24 Range/Units 06:26 Sodium 136 L (137-145) mmol/L Potassium 3.6 (3.5-5.1) mmol/L Chloride 105 (98-107) mmol/L Carbon Dioxide 24 (22-30) mmol/L BUN 3 L (7-17) mg/dL Creatinine 0.69 (0.52-1.04) mg/dL Glucose 127 H (74-99) mg/dL Calcium 8.8 (8.4-10.2) mg/dL Adrenal panel 06/26/24 Range/Units 06:26 Sodium 136 L (137-145) mmol/L Potassium 3.6 (3.5-5.1) mmol/L Chloride 105 (98-107) mmol/L Carbon Dioxide 24 (22-30) mmol/L BUN 3 L (7-17) mg/dL Creatinine 0.69 (0.52-1.04) mg/dL Glucose 127 H (74-99) mg/dL Calcium 8.8 (8.4-10.2) mg/dL Total Bilirubin 2.2 H (0.2-1.3) mg/dL AST 391 H (14-36) U/L ALT 271 H (4-34) U/L Alkaline Phosphatase 231 H (38-126) U/L Total Protein 5.6 L (6.3-8.2) g/dL Albumin 3.0 L (3.5-5.0) g/dL Assessment and Plan (1) Retention of urine, unspecified Current Visit: Yes Status: Acute Code(s): R33.9 - RETENTION OF URINE, UN SPECIFIED SNOMED Code(s): 067162452 Plan: The cause of the patient's urinary retention is indeterminate. She will require ERCP, perhaps tomorrow. It would be my recommendation that the Sanches catheter remain in place until this is completed. The catheter may then be removed for a repeat voiding trial.
[2024-06-27 07:02] LABS: Basophils % (A) 1 %; Eosinophils # (A) 0.4 k/uL (0-0.7); Eosinophils % (A) 7 %; HCT 36.4 % (34.0-46.0); HGB 11.8 gm/dL (11.4-16.0); Hypochromasia Moderate; Lymphocytes # (A) 1.9 k/uL (1.0-4.8); Lymphocytes % (A) 37 %; MCH 26.2 pg (25.0-35.0); MCHC 32.3 g/dL (31.0-37.0); Mean Platelet Volume 8.5; Monocytes # (A) 0.2 k/uL (0-1.0); Monocytes % (A) 4 %; Neutrophils # (A) 2.4 k/uL (1.3-7.7); Neutrophils % (A) 47 %; Platelet Count 212 k/uL (150-450); RBC 4.49 m/uL (3.80-5.40); RDW 14.2 % (11.5-15.5); WBC 5.2 k/uL (4.0-11.0)
[2024-06-27 07:28] LABS: ALT 202 U/L (4-34); AST 105 U/L (14-36); African American GFR (CKD) >90 (>60 ml/min/1.73 sqM); Albumin 3.1 g/dL (3.5-5.0); Alkaline Phosphatase 207 U/L (38-126); Anion Gap 7 mmol/L; Blood Urea Nitrogen <2 mg/dL (7-17); Calcium 8.4 mg/dL (8.4-10.2); Carbon Dioxide 27 mmol/L (22-30); Chloride 104 mmol/L (98-107); Glucose 102 mg/dL (74-99); Non-African American GFR(CKD) >90 (>60 ml/min/1.73 sqM); Potassium 3.4 mmol/L (3.5-5.1); Sodium 138 mmol/L (137-145); Total Bilirubin 0.6 mg/dL (0.2-1.3); Total Protein 5.6 g/dL (6.3-8.2)
[2024-06-27] MEDS ORDERED: HYDROmorphone 0.5 MG/0.5 ML SYRINGE IVP PRN (08:17)
--- NOTE | 2024-06-27 09:35 | P.PN ---
Subjective Progress Note Date: 06/27/24 Principal diagnosis: Elevated LFTs This a pleasant 18-year-old female who had presented to the hospital with complaints of right upper quadrant abdominal pain. This was her second recent visit for right upper quadrant pain. She was seen on June 22 and had ultrasound done with evidence of gallstones. She was discharged at that time. Apparently after eating on Sunday she started having abdominal pain again associated in the right upper quadrant of her abdomen, she presented to the emergency department the next day and had a cyst CAT scan of the abdomen and pelvis with findings of diffuse stranding around the gallbladder consistent with cholecystitis. Yesterday she was noted to have some mild elevation in her total bilirubin and LFTs. Yesterday she underwent laparoscopic cholecystectomy. Today she had further elevation in her LFTs, gastroenterology was consulted for possible choledocholithiasis. Patient is 3 weeks . Patient states she has abdominal pain still in the right upper quadrant. She is currently very tired. Has some nausea but no vomiting. She is afebrile. Total bilirubin 2.2 AST 391 ALT 271 alkaline phosphatase 231. She is on IV Rocephin and Flagyl 06/27/2024 Patient seen and examined today as a follow-up. LFTs are trending down. Total bilirubin dropped from 2.2-0.6. Patient states abdominal pain improved. Most of her discomfort is postsurgical pain. Still has nausea but no vomiting. Patient is afebrile. She was seen by urology has indwelling Sanches catheter at this time. Today's labs WBC 5.2 hemoglobin 11.8 platelet count 212,000 total bilirubin 0.6 AST 105 ALT 202 alkaline phosphatase 202 Objective - Vital Signs Vital signs: Vital Signs Temp 97.9 F 06/27/24 00:00 Pulse 50 L 06/27/24 00:00 Resp 16 06/27/24 00:00 BP 140/80 06/27/24 00:00 Pulse Ox 98 06/27/24 00:00 FiO2 Intake & Output 06/26/24 06/27/24 06/27/24 18:59 06:59 18:59 Intake Total 480 600 Output Total 1900 1900 Balance -1420 -1300 Intake: Oral 480 600 Output: Urine 1900 1900 Uretheral (Sanches) 1100 - Exam General appearance: The patient is alert, oriented, appears in no acute distress. HET: Head is normocephalic and atraumatic. Conjunctiva pink. Sclera anicteric. Neck: Supple without lymphadenopathy. Abdomen: Soft, nontender in right upper quadrant, tenderness near incision sites, which are well-approximated, nondistended. Extremities: Normal skin color and turgor. No pedal edema Skin: No rashes, no jaundice Neurological: No focal deficits. Alert and oriented. - Labs CBC & Chem 7: 06/27/24 06:36 06/27/24 06:36 Labs: Abnormal Lab Results - Last 24 Hours (Table) 06/27/24 Range/Units 06:36 Potassium 3.4 L (3.5-5.1) mmol/L BUN <2 L (7-17) mg/dL Glucose 102 H (74-99) mg/dL AST 105 H (14-36) U/L ALT 202 H (4-34) U/L Alkaline Phosphatase 207 H (38-126) U/L Total Protein 5.6 L (6.3-8.2) g/dL Albumin 3.1 L (3.5-5.0) g/dL Assessment and Plan (1) Elevated LFTs Narrative/Plan: 18-year-old female had presented with abdominal pain with CT elevated and's of cholecystitis and prior ultrasound evidence with Regina lithiasis who underwent laparoscopic cholecystectomy with evidence of gallstones per surgeon. Patient has had continued increase in her LFTs. Concerns for possible ronni docholithiasis, however today significant drop in total bilirubin and LFTs are trending down. Likely patient passed biliary stone. Will cancel ERCP for today. Continue with recommendations from general surgery. Current Visit: Yes Status: Acute Code(s): R79.89 - OTHER SPECIFIED ABNORMAL FINDINGS OF BLOOD CHEMISTRY SNOMED Code(s): 319380853 (2) Cholelithiasis Current Visit: Yes Status: Acute Code(s): K80.20 - CALCULUS OF GALLBLADDER W/O CHOLECYSTITIS W/O OBSTRUCTION SNOMED Code(s): 502327469 (3) Acute cholecystitis Current Visit: Yes Status: Acute Code(s): K81.0 - ACUTE CHOLECYSTITIS SNOMED Code(s): 05415131 Plan: 1. Continue symptomatic and supportive care 2. Patient discussed with general surgery physician psychology assistant, will start on regular diet 3. May continue anticoagulation 4. Antiemetics as needed 5. ERCP canceled. No further workup at this time. 6. Continue with recommendations from general surgery 7. Outpatient follow-up with general surgery, can repeat LFTs. Follow-up with gastroenterology as needed. Thank you for allowing us to participate in the care of the patient, the GI service will sign off, gastroenterology will not be available at the hospital this weekend and through next week. If further evaluation by gastroenterology is required the patient will need transfer as per the primary team's discretion. Dr. Tona Montero I agree with the dictator's note, documented as a scribe by Karina Tafoya.
[2024-06-27] MEDS: POTASSIUM CHLORIDE ER 20 MEQ TAB.ER PO STA (09:59)
--- NOTE | 2024-06-27 12:47 | P.PN ---
Subjective Progress Note Date: 06/27/24 SURGICAL PROGRESS NOTE CHIEF COMPLAINT: Cholecystitis HISTORY OF PRESENT ILLNESS: Patient is POD#2 status post laparoscopic cholecystectomy. Patient complains of epigastric abdominal pain. She does repo rt the pain is less than yesterday. She has been having nausea and dizziness possibly related to the IV Dilaudid. Per nursing staff patient has been using the IV Dilaudid every 3 hours. She had urinary retention and required Sanches catheter to be placed. She was seen by urology. Patient reports no vomiting. She is having flatus. She reports no bowel movement. Afebrile. WBC 5.2 potassium 3.4 total bilirubin down from 2.2-0.6 LFTs trending down PHYSICAL EXAM: VITAL SIGNS: Reviewed. GENERAL: Well-developed in no acute distress. ABDOMEN: Soft. Nondistended. Epigastric tenderness with palpation incision sites clean dry and intact NEUROLOGIC: Alert and oriented. Cranial nerves II through XII grossly intact. ASSESSMENT: 1. Acute cholecystitis 2. Cholelithiasis 3. Elevated LFTs and total bilirubin trending downwards. Total bilirubin normalized. Patient likely passed a gallstone. 4. 3 weeks 5. Hypokalemia PLAN: -Patient is LFTs are improving and total bilirubin normalized. GI service canceled ERCP today. Patient has likely passed a gallstone -Okay for regular diet -Colace added for constipation -Decrease Dilaudid to 0.5 every 8 hours as needed for pain. Educated patient to use oral pain medication. -Encourage patient to ambulate and to take meals at bedside chair -Patient is Sanches catheter in place for urinary retention. Seen by urology -Continue antibiotics -Replace potassium -Resume Lovenox for DVT prophylaxis -Anticipate possible discharge tomorrow Physician Instrument Lens Inspector note has been reviewed by physician. Signing provider agrees with the documented findings, assessment, and plan of care. Objective - Vital Signs Vital signs: Vital Signs Temp 97.4 F L 06/27/24 08:30 Pulse 54 L 06/27/24 08:30 Resp 16 06/27/24 08:30 BP 130/80 06/27/24 08:30 Pulse Ox 98 06/27/24 00:00 FiO2 Intake & Output 06/26/24 06/27/24 06/27/24 18:59 06:59 18:59 Intake Total 480 600 Output Total 1900 1900 Balance -1420 -1300 Intake: Oral 480 600 Output: Urine 1900 1900 Uretheral (Sanches) 1100 - Labs CBC & Chem 7: 06/27/24 06:36 06/27/24 06:36 Labs: Abnormal Lab Results - Last 24 Hours (Table) 06/27/24 Range/Units 06:36 Potassium 3.4 L (3.5-5.1) mmol/L BUN <2 L (7-17) mg/dL Glucose 102 H (74-99) mg/dL AST 105 H (14-36) U/L ALT 202 H (4-34) U/L Alkaline Phosphatase 207 H (38-126) U/L Total Protein 5.6 L (6.3-8.2) g/dL Albumin 3.1 L (3.5-5.0) g/dL
[2024-06-27] MEDS: DOCUSATE 100 MG CAP PO SCH (13:28)
[2024-06-27] MEDS: ENOXAPARIN 40 MG/0.4 ML SYRINGE SQ SCH (13:30)
[2024-06-27] MEDS: ONDANSETRON 4 MG/2 ML VIAL IVP PRN (18:06)
[2024-06-28 07:00] LABS: ALT 132 U/L (4-34); AST 47 U/L (14-36); African American GFR (CKD) >90 (>60 ml/min/1.73 sqM); Albumin 2.9 g/dL (3.5-5.0); Alkaline Phosphatase 171 U/L (38-126); Anion Gap 6 mmol/L; Blood Urea Nitrogen 3 mg/dL (7-17); Calcium 8.8 mg/dL (8.4-10.2); Carbon Dioxide 27 mmol/L (22-30); Chloride 103 mmol/L (98-107); Glucose 108 mg/dL (74-99); Non-African American GFR(CKD) >90 (>60 ml/min/1.73 sqM); Sodium 136 mmol/L (137-145); Total Bilirubin 0.5 mg/dL (0.2-1.3); Total Protein 5.6 g/dL (6.3-8.2)
[2024-06-28 08:53] VITALS: BP 111/69; PULSE 52; RESP 14; TEMP 98
[2024-06-28] MEDS: INDOMETHACIN 100 MG SUPPOSITORY RECTAL ONE (09:02)
--- NOTE | 2024-06-28 10:37 | P.DS ---
Providers Date of admission: 06/24/24 05:47 Expected date of discharge: 06/28/24 Attending physician: Carlos Lomax Consults: 06/26/24 08:06 Consult Physician Routine Consulting Provider: Annmarie Montero Consult Reason/Comments: Elevated LFTs, possible choledocholithiasis Do you want consulting provider notified?: Yes 06/26/24 12:11 Consult Physician Routine Consulting Provider: Gerald Salgado Consult Reason/Comments: Urinary retention chronic Do you want consulting provider notified?: Yes Primary care physician: Kofi Colvin [facility] Course: Patient mated for cholecystitis. Underwent laparoscopic cholecystectomy. Postoperative the patient was thought to likely passed a retained stone. She has done well. GI was consulted. No ERCP was required. Labs are improved today. She is very anxious to go home. Will plan discharge. Follow-up with Dr. Lomax as outpatient in 2 weeks. Patient Condition at Discharge: Stable Plan - Discharge Summary New Discharge Prescriptions: New Docusate [Colace] 100 mg PO BID #30 capsule HYDROcodone/APAP 5-325MG [Stanhope 5-325] 1 tab PO Q6HR PRN 3 Days #12 tab PRN Reason: Pain Continue Ketorolac [Toradol] 10 mg PO Q8HR #15 tab Ondansetron Odt [Zofran ODT] 4 mg PO Q8HR PRN #10 tab PRN Reason: Nausea diphenhydrAMINE HCL [Benadryl] 25 mg PO BID PRN PRN Reason: Allergy Symptoms Albuterol Inhaler [Ventolin Hfa Inhaler] 1 puff INHALATION RT-QID PRN PRN Reason: Shortness Of Breath Discharge Medication List Ketorolac [Toradol] 10 mg PO Q8HR #15 tab 06/22/24 [Rx] Ondansetron Odt [Zofran ODT] 4 mg PO Q8HR PRN #10 tab 06/22/24 [Rx] Albuterol Inhaler [Ventolin Hfa Inhaler] 1 puff INHALATION RT-QID PRN 06/24/24 [History] diphenhydrAMINE HCL [Benadryl] 25 mg PO BID PRN 06/24/24 [History] Docusate [Colace] 100 mg PO BID #30 capsule 06/27/24 [Rx] HYDROcodone/APAP 5-325MG [Stanhope 5-325] 1 tab PO Q6HR PRN 3 Days #12 tab 06/27/24 [Rx] Follow up Appointment(s)/Referral(s): Annmarie Montero MD [STAFF PHYSICIAN] - As Needed Kofi Colvin MD [Primary Care Provider] - 1-2 days Carlos Lomax MD [STAFF PHYSICIAN] - 2 Weeks Activity/Diet/Wound Care/Special Instructions: No driving while taking Stan[place] No lifting over 10 pounds You may shower. No soaking or tub baths for 2 weeks Very light activity until you are reevaluated at your follow up appointment with your surgeon
== END 2024-06-28 10:56 | disposition home or self-care (01) | DRG 548 ==
LOC: EC 01:22 → 6NMEDSUR 05:46 → OBSVTOIN 05:47 → 6NMEDSUR 16:19 → 1SOBS 19:16 → 4FBP 06-25 17:36
PROVIDERS: ADMIT Surgery; ATTEND Surgery
PROC: 0FT44ZZ Resection of Gallbladder, Percutaneous Endoscopic Approach (ICD-10-PCS; principal; 2024-06-25 09:25)
DX: O26.63 Liver and biliary tract disorders in the puerperium (principal); R33.9 Retention of urine, unspecified; K80.00 Calculus of gallbladder with acute cholecystitis without obstruction; O90.89 Other complications of the puerperium, not elsewhere classified; O99.285 Endocrine, nutritional and metabolic diseases complicating the puerperium; E87.6 Hypokalemia; Z79.899 Other long term (current) drug therapy; Z91.041 Radiographic dye allergy status; Z87.440 Personal history of urinary (tract) infections
CPT/HCPCS: 36415; 74176; 80053; 81001; 81025; 82150; 83605; 83690; 85025; 85610; 85730; 87086; 88304; 96361; 96365; 96375; 96376; 99285

== ENCOUNTER 2024-07-24 07:49 | Day surgery (SDC) | payer OTHER ==
[2024-07-21 11:06] VITALS: BMI 25.4
[2024-07-24] MEDS: IV FLUID CONTINUATION 1,000 ML IV ONE (09:18)
[2024-07-24 09:19] VITALS: TEMP 97.3
[2024-07-24] MEDS: LACTATED RINGERS 1,000 ML IV SCH (09:29)
[2024-07-24] MEDS ORDERED: LIDOCAINE 2% (PF) 20 MG/ML 5 ML VIAL ONE (09:42)
[2024-07-24] MEDS ORDERED: fentaNYL (PF) 50 MCG/ML 2 ML AMP ONE (09:42)
[2024-07-24] MEDS ORDERED: PROPOFOL 10 MG/ML 20 ML VIAL IV ONE (09:42)
--- NOTE | 2024-07-24 09:49 | P.GSHP ---
History of Present Illness H&P Date: 07/24/24 Chief Complaint: Gerd This is a 18-year-old female who has a history of gerd. Patient states she has a history of hiatal hernia. Past Medical History Past Medical History: Asthma, GERD/Reflux Additional Past Medical History / Comment(s): Hernia. BP high at times. Sciatic pains in hips and thighs. Migraines. History of Any Multi-Drug Resistant Organisms: None Reported Past Surgical History: Cholecystectomy Additional Past Surgical History / Comment(s): Elton teeth extracted. Past Anesthesia/Blood Transfusion Reactions: No Reported Reaction, Motion Sickness Smoking Status: Vaper - Past Family History Father Family Medical History: Diabetes Mellitus Mother Family Medical History: Diabetes Mellitus Medications and Allergies Home Medications Medication Instructions Recorded Confirmed Type Albuterol Inhaler [Ventolin Hfa 1 puff INHALATION RT-QID PRN 06/24/24 07/24/24 History Inhaler] Allergies Allergy/AdvReac Type Severity Reaction Status Date / Time Iodinated Contrast Media Allergy Anaphylaxis Verified 07/24/24 09:12 Surgical - Exam Vital Signs Temp Pulse Resp BP Pulse Ox 97.3 F L 72 74 H 120/63 100 07/24/24 09:18 07/24/24 09:18 07/24/24 09:18 07/24/24 09:18 07/24/24 09:18 - General well developed, well nourished, no distress - Eyes PERRL - ENT normal pinna - Neck no masses - Respiratory normal expansion - Cardiovascular Rhythm: regular - Abdomen Abdomen: soft, non tender Assessment and Plan Plan: Gerd. Will perform EGD.
--- NOTE | 2024-07-24 10:00 | P.OP ---
Date of Procedure: 07/24/24 Preoperative Diagnosis: Gerd Postoperative Diagnosis: Antral gastritis Procedure(s) Performed: EGD Anesthesia: MAC Surgeon: Carlos Lomax Pathology: other (Antrum) Condition: stable Disposition: PACU Description of Procedure: The patient was placed on the endoscopy table in the lateral position. She re ceived IV sedation. The Ori placed oropharynx passed in the esophagus and stomach. Scope was placed through the pylorus. The 1st and 2nd portion of the duodenum appeared normal. The scope was over back the antrum this was mildly inflamed. A biopsy was performed. The scope was then retroflexed in the manger of the stomach. Normal. The GE junction was at 40 seconds. The scope was retroflexed there was no evidence of hiatal hernia. The GE junction was at 40 cm. T the distal esophagus appeared normal. The proximal esophagus were normal. Scope withdrawn for the patient.
[2024-07-24 10:22] VITALS: BP 104/59; PULSE 72; RESP 16
== END 2024-07-24 10:50 | disposition home or self-care (01) ==
LOC: ORWHC2ENDO 07:49
PROVIDERS: ATTEND Surgery
DX: K29.50 Unspecified chronic gastritis without bleeding (principal); K21.9 Gastro-esophageal reflux disease without esophagitis; J45.909 Unspecified asthma, uncomplicated
CPT/HCPCS: 81025; 43239; J3010; J2704; J2003; 88305

== ENCOUNTER → 2024-11-04 | Outpatient (CLI) | payer OTHER ==
--- NOTE | 2024-11-04 15:15 | XR ---
EXAMINATION TYPE: XR lumbosacral spine min 4V DATE OF EXAM: 11/04/2024 3:05 PM INDICATION: Patient age:Female; 19 years old; Reason for study: M54.50; PHH. pain COMPARISON: CT abdomen and pelvis 02/28/2020 TECHNIQUE: Frontal, lateral , bilateral oblique and coned in L5-S1 lateral views of the spine. FINDINGS: There are 5 lumbar type vertebral bodies identified. No evidence of any acute osseous patho logy. No evidence of loss of vertebral body height is seen. There is normal alignment of the lumbar vertebral bodies. Cholecystectomy clips in the right upper quadrant. IMPRESSION: No acute process. [facility], , 11/04/2024 3:12 PM
--- NOTE | 2024-11-04 15:16 | XR ---
EXAMINATION TYPE: XR Hip Bilateral Complete DATE OF EXAM: 11/04/2024 3:05 PM INDICATION: Patient age:Female; 19 years old; Reason for study: [id number]; H. pain COMPARISON: CT abdomen pelvis 02/28/2020 TECHNIQUE: Both hips were examined in the frontal and lateral projections . FINDINGS: No evidence of any acute osseous pathology, joint dislocation, or soft tissue swelling. Bot h SI joints appear intact. IMPRESSION: No acute osseous pathology. [facility], , 11/04/2024 3:13 PM
== END | disposition home or self-care (01) ==
LOC: RADXRMAIN 14:28
PROVIDERS: ATTEND Pediatrics
DX: M25.551 Pain in right hip (principal); M25.552 Pain in left hip; M54.50 Low back pain, unspecified
CPT/HCPCS: 72110; 73521